=== PATIENT | female | born 1960 | race Caucasian/White ===

== ENCOUNTER 2019-03-15 17:44 | Inpatient (IN) | payer OTHER ==
--- OUTSIDE RECORDS SUMMARY | 2019-03-15 17:46 | XMS REPORT ---
:1960 [facility] Address [address] [place] [address] [address]. [address]. [address] [place] [address] Care Team Providers Name Role Phone Unavailable Unavailable Unavailable Payers Payer Name Policy Type Policy Number Effective Date Expiration Date Problems This patient has no known problems. Allergies, Adverse Reactions, Alerts Allergy Allergy Status Severity Reaction(s) Onset Inactive Treating Comments Name Type Date Date Clinician No Known DA Active U 2018-09 Drug -19 Allergies 00:00:0 0 Medications This patient has no known medications.
--- NOTE | 2019-03-15 18:45 | RAD REPORT ---
EXAM DESCRIPTION: Anastasia Single View03/15/2019 6:24 pm CLINICAL HISTORY: Chest pain COMPARISON: January 2019 FINDINGS: The lungs appear clear of acute infiltrate. The heart is mildly enlarged IMPRESSION: No acute abnormalities displayed
[2019-03-15 19:23] LABS: Urine Blood 1+ (NEG); Urine Glucose NEGATIVE (NEG); Urine Protein NEGATIVE (NEG); Urine Specific Gravity 1.005 (1.005-1.030); Urine pH 7.5 (5.0-7.0)
[2019-03-15 19:25] LABS: Absolute Monocytes 0.5 K/uL (0.1-1.3); Absolute Neutrophil 4.3 K/uL (1.8-8.0); Basophils % 0.8 % (0-1.3); Eosinophils % 2.7 % (0-4.4); Hematocrit 41.3 % (36.0-45.0); Lymphocytes % 28.9 % (15.3-44.8); MPV 8.1 fL (7.6-11.3); Monocytes % 6.9 % (3.3-12.3); RBC Red Blood Cell Count 4.56 M/uL (3.86-4.86)
[2019-03-15 19:29] LABS: Protime INR 0.93
[2019-03-15 19:47] LABS: Potassium 3.4 mmol/L (3.5-5.1); Troponin (Emerg Dept Use Only) 0.16 ng/mL (0.0-0.045)
--- NOTE | 2019-03-15 21:14 | EDPHYS ---
Physician Documentation [facility] Name: Kay Rousseau Age: 58 yrs Sex: Female : 1960 Arrival Date: 03/15/2019 Time: 17:47 Bed 18 Private MD: Cliff Orantes ED Physician Carl Soria HPI: 03/15 21:15 This 58 yrs old Female presents to ER via Ambulatory with complaints of High gs Blood Pressure, Nausea, Dizziness. 21:16 This 58 yrs old Female presents to ER via Ambulatory with complaints of High gs Blood Pressure, Nausea, Dizziness. 21:15 The patient has elevated blood pressure and discovered this at home. gs 21:16 The patient or guardian reports chest pain that is located primarily in the anterior gs chest wall. Onset: today. The pain radiates to the left arm, neck. Associated signs and symptoms: Pertinent positives: dizziness, shortness of breath. The chest pain is described as a heaviness. Duration: The patient or guardian reports a single episode, that is now resolved. Severity of pain: At its worst the pain was moderate severe in the emergency department the pain has resolved. The patient has experienced similar episodes in the past, a few times. Historical: - Allergies: 17:56 No Known Allergies; aj - Home Meds: 17:56 losartan Oral [Active]; Prozac 40 mg Oral cap 2 caps once daily [Active]; Synthroid 112 aj mcg Oral tab 1 tab once daily [Active]; - PMHx: 17:56 Depression; High Cholesterol; Hypertension; Hypothyroidism; aj - PSHx: 17:56 Thyroidectomy; aj - Immunization history:: Adult Immunizations up to date. - Social history:: Smoking status: Patient/guardian denies using tobacco. - Ebola Screening: : Patient negative for fever greater than or equal to 101.5 degrees Fahrenheit, and additional compatible Ebola Virus Disease symptoms Patient denies exposure to infectious person Patient denies travel to an Ebola-affected area in the 21 days before illness onset No symptoms or risks identified at this time. ROS: 21:16 All other systems are negative. gs Exam: 21:16 Head/Face: Normocephalic, atraumatic. Eyes: Pupils equal round and reactive to light, gs extra-ocular motions intact. Lids and lashes normal. Conjunctiva and sclera are non-icteric and not injected. Cornea within normal limits. Periorbital areas with no swelling, redness, or edema. ENT: Nares patent. No nasal discharge, no septal abnormalities noted. Tympanic membranes are normal and external auditory canals are clear. Oropharynx with no redness, swelling, or masses, exudates, or evidence of obstruction, uvula midline. Mucous membranes moist. Neck: Trachea midline, no thyromegaly or masses palpated, and no cervical lymphadenopathy. Supple, full range of motion without nuchal rigidity, or vertebral point tenderness. No Meningismus. Chest/axilla: Normal chest wall appearance and motion. Nontender with no deformity. No lesions are appreciated. Cardiovascular: Regular rate and rhythm with a normal S1 and S2. No gallops, murmurs, or rubs. Normal PMI, no JVD. No pulse deficits. Respiratory: Lungs have equal breath sounds bilaterally, clear to auscultation and percussion. No rales, rhonchi or wheezes noted. No increased work of breathing, no retractions or nasal flaring. Abdomen/GI: Soft, non-tender, with normal bowel sounds. No distension or tympany. No guarding or rebound. No evidence of tenderness throughout. Back: No spinal tenderness. No costovertebral tenderness. Full range of motion. Skin: Warm, dry with normal turgor. Normal color with no rashes, no lesions, and no evidence of cellulitis. MS/ Extremity: Pulses equal, no cyanosis. Neurovascular intact. Full, normal range of motion. Neuro: Awake and alert, GCS 15, oriented to person, place, time, and situation. Cranial nerves II-XII grossly intact. Motor strength 5/5 in all extremities. Sensory grossly intact. Cerebellar exam normal. Normal gait. 21:16 Constitutional: The patient appears alert, awake. 21:16 ECG was reviewed by the Attending Physician. Vital Signs: 17:56 BP 177 / 91; Pulse 72; Resp 19; Temp 98.1; Pulse Ox 98% on R/A; Weight 87.09 kg; Height aj 5 ft. 5 in. (165.10 cm); 18:46 BP 143 / 89; Pulse 61; Resp 16; Pulse Ox 96% ; bp 19:15 BP 121 / 74; Pulse 59; Resp 17; Temp 98; Pulse Ox 99% ; Pain 0/10; rr5 20:00 BP 125 / 75; Pulse 60; Resp 17; Temp 98; Pulse Ox 99% ; Pain 0/10; rr5 21:00 BP 126 / 75; Pulse 58; Resp 16; Pulse Ox 98% on R/A; rr5 22:10 BP 131 / 69; Pulse 59; Resp 17; Pulse Ox 99% on R/A; rr5 23:30 BP 120 / 69; Pulse 60; Resp 18; Temp 98.1; Pulse Ox 99% ; Pain 0/10; rr5 17:56 Body Mass Index 31.95 (87.09 kg, 165.10 cm) aj MDM: 18:24 Patient medically screened. 21:16 Differential diagnosis: abnormal EKG, acute myocardial infarction, coronary artery gs disease pneumonia. HEART Score: History: Highly Suspicious (2), ECG: Non specific repolarization disturbance / LBTB / PM (1), Age: > 45 and < 65 years (1), Risk Factors: 1 or 2 risk factors (1), Troponin: > or = 3 x Normal Limit (2). The patient was given aspirin in the Emergency Department. Data reviewed: vital signs, nurses notes. Counseling: I had a detailed discussion with the patient and/or guardian regarding: the historical points, exam findings, and any diagnostic results supporting the discharge/admit diagnosis, the need for further work-up and treatment in the hospital. 03/15 18:10 Order name: Basic Metabolic Panel 03/15 18:10 Order name: CBC with Diff 03/15 18:10 Order name: NT PRO-BNP; Complete Time: 21:04 03/15 18:10 Order name: PT-INR; Complete Time: 19:36 03/15 18:10 Order name: Troponin (emerg Dept Use Only); Complete Time: 21:04 03/15 18:11 Order name: Basic Metabolic Panel; Complete Time: 21:04 EDGA 03/15 18:10 Order name: XRAY Chest (1 view); Complete Time: 19:36 03/15 18:10 Order name: EKG; Complete Time: 18:12 03/15 18:11 Order name: CBC with Automated Diff; Complete Time: 19:36 EDGA 03/15 19:01 Order name: Urine Dipstick--Ancillary (enter results); Complete Time: 19:36 03/15 22:18 Order name: CONS Physician Consult [facility] 03/15 22:18 Order name: Echo with Doppler [facility] 03/15 22:18 Order name: Troponin I [facility] 03/15 18:10 Order name: Cardiac monitoring; Complete Time: 18:31 03/15 18:10 Order name: EKG - Nurse/Tech; Complete Time: 18:50 03/15 18:10 Order name: IV Saline Lock; Complete Time: 18:44 03/15 18:10 Order name: Labs collected and sent; Complete Time: 18:44 03/15 18:10 Order name: O2 Per Protocol; Complete Time: 18:31 03/15 18:10 Order name: O2 Sat Monitoring; Complete Time: 18:31 03/15 18:51 Order name: Labs - recollect needed; Complete Time: 19:19 aa5 EC:16 Rate is 58 beats/min. Rhythm is regular. IA interval is normal. QRS interval is normal. gs No Q waves. T waves are Flattened. ST Segment is depressed in leads I, aVL. Clinical impression: Cardiac ischemia. Interpreted by me. Administered Medications: 21:37 Drug: Aspirin Chewable Tablet 324 mg Route: PO; rr5 22:31 Follow up: Response: No adverse reaction rr5 Disposition: 21:16 Critical Care:. gs Disposition: 03/15/19 21:14 Hospitalization ordered by Earnest Vee for Inpatient Admission. Preliminary diagnosis is Unstable angina. - Bed requested for Telemetry/MedSurg (Inpatient). - Status is Inpatient Admission. rr5 - Condition is Stable. - Problem is new. - Symptoms are resolved. UTI on Admission? No Critical care time excluding procedures: 21:16 Critical care time: Bedside Care: 10 minutes, Consultation: 10 minutes, Family gs Intervention: 10 minutes. Total time: 30 minutes Signatures: Dispatcher [employer] EDSadaf Turner RN RN aj Calderon, Audri, RN RN aa5 Shanda Calzada RN RN cg Starr, Gregory, MD MD Cristofer Bacon RN RN rr5 Corrections: (The following items were deleted from the chart) 22:22 21:14 Hospitalization Ordered by Earnest Vee MD for Inpatient Admission. Preliminary cg diagnosis is Unstable angina. Bed requested for Telemetry/MedSurg (Inpatient). Status is Inpatient Admission. Condition is Stable. Problem is new. Symptoms are resolved. UTI on Admission? No. 23:50 22:22 03/15/2019 21:14 Hospitalization Ordered by Earnest Vee MD for Inpatient rr5 Admission. Preliminary diagnosis is Unstable angina. Bed requested for Telemetry/MedSurg (Inpatient). Status is Inpatient Admission. Condition is Stable. Problem is new. Symptoms are resolved. UTI on Admission? No.
--- NOTE | 2019-03-15 21:14 | ER ---
Nurse's Notes [facility] Name: Kay Rousseau Age: 58 yrs Sex: Female : 1960 Arrival Date: 03/15/2019 Time: 17:47 Bed 18 Private MD: Cliff Orantes Diagnosis: Unstable angina Presentation: 03/15 17:54 Presenting complaint: Patient states: "spells of chest pain, headache and left arm aj numbness" that started 2 days ago. Reports continued numbness to left arm and general "fogginess". Reports HTN today. Transition of care: patient was not received from another setting of care. Onset of symptoms was March 13, 2019. Risk Assessment: Do you want to hurt yourself or someone else? Patient reports no desire to harm self or others. Initial Sepsis Screen: Does the patient meet any 2 criteria? No. Patient's initial sepsis screen is negative. Does the patient have a suspected source of infection? No. Patient's initial sepsis screen is negative. Care prior to arrival: None. 17:54 Method Of Arrival: Ambulatory 17:54 Acuity: JEREMY 2 aj Triage Assessment: 17:56 General: Appears in no apparent distress. comfortable, Behavior is calm, cooperative, aj appropriate for age. Pain: Denies pain. Neuro: Level of Consciousness is awake, alert, obeys commands, Oriented to person, place, time, situation, Appropriate for age Gait is steady, Speech is normal, Facial symmetry appears normal, Numbness in left arm. Respiratory: Airway is patent Respiratory effort is even, unlabored, Respiratory pattern is regular, symmetrical. GI: Reports nausea. Derm: Skin is intact, is healthy with good turgor, Skin is pink, warm \\T\\ dry. normal. Historical: - Allergies: 17:56 No Known Allergies; aj - Home Meds: 17:56 losartan Oral [Active]; Prozac 40 mg Oral cap 2 caps once daily [Active]; Synthroid 112 aj mcg Oral tab 1 tab once daily [Active]; - PMHx: 17:56 Depression; High Cholesterol; Hypertension; Hypothyroidism; aj - PSHx: 17:56 Thyroidectomy; aj - Immunization history:: Adult Immunizations up to date. - Social history:: Smoking status: Patient/guardian denies using tobacco. - Ebola Screening: : Patient negative for fever greater than or equal to 101.5 degrees Fahrenheit, and additional compatible Ebola Virus Disease symptoms Patient denies exposure to infectious person Patient denies travel to an Ebola-affected area in the 21 days before illness onset No symptoms or risks identified at this time. Screenin:00 Abuse screen: Denies threats or abuse. Denies injuries from another. Nutritional bp screening: No deficits noted. Tuberculosis screening: No symptoms or risk factors identified. Fall Risk None identified. Assessment: 18:00 General: SEE TRIAGE NOTE. bp 19:15 General: Appears in no apparent distress. comfortable, Behavior is calm, cooperative, rr5 appropriate for age. Pain: Denies pain. Neuro: Level of Consciousness is awake, alert, obeys commands, Oriented to person, place, time, situation, Appropriate for age Reports dizziness. Cardiovascular: Capillary refill < 3 seconds Patient's skin is warm and dry. 19:15 Reassessment: blood recollection done. Cardiovascular: Reports high blood pressure. rr5 Respiratory: Airway is patent Respiratory effort is even, unlabored, Respiratory pattern is regular, symmetrical. GI: Abdomen is obese, Reports nausea. : No signs and/or symptoms were reported regarding the genitourinary system. EENT: No signs and/or symptoms were reported regarding the EENT system. Derm: Skin is intact, Skin temperature is warm. Musculoskeletal: Capillary refill < 3 seconds, Range of motion: intact in all extremities. 20:30 Reassessment: Patient appears in no apparent distress at this time. No changes from rr5 previously documented assessment. Patient is alert, oriented x 3, equal unlabored respirations, skin warm/dry/pink. awaiting for result. 21:25 Reassessment: Patient appears in no apparent distress at this time. Patient is alert, rr5 oriented x 3, equal unlabored respirations, skin warm/dry/pink. Patient denies pain at this time. Patient states feeling better. Patient states symptoms have improved. 22:10 Reassessment: Patient appears in no apparent distress at this time. Patient is alert, rr5 oriented x 3, equal unlabored respirations, skin warm/dry/pink. review done for admission patient agreed for the plan of care. 23:30 Reassessment: Patient appears in no apparent distress at this time. Patient is alert, rr5 oriented x 3, equal unlabored respirations, skin warm/dry/pink. 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 no complaints made. vitally stable. for transfer in 4th floor. Vital Signs: 17:56 BP 177 / 91; Pulse 72; Resp 19; Temp 98.1; Pulse Ox 98% on R/A; Weight 87.09 kg; Height aj 5 ft. 5 in. (165.10 cm); 18:46 BP 143 / 89; Pulse 61; Resp 16; Pulse Ox 96% ; bp 19:15 BP 121 / 74; Pulse 59; Resp 17; Temp 98; Pulse Ox 99% ; Pain 0/10; rr5 20:00 BP 125 / 75; Pulse 60; Resp 17; Temp 98; Pulse Ox 99% ; Pain 0/10; rr5 21:00 BP 126 / 75; Pulse 58; Resp 16; Pulse Ox 98% on R/A; rr5 22:10 BP 131 / 69; Pulse 59; Resp 17; Pulse Ox 99% on R/A; rr5 23:30 BP 120 / 69; Pulse 60; Resp 18; Temp 98.1; Pulse Ox 99% ; Pain 0/10; rr5 17:56 Body Mass Index 31.95 (87.09 kg, 165.10 cm) aj ED Course: 17:47 Patient arrived in ED. mr 17:48 Cliff Orantes MD is Private Physician. mr 17:55 Triage completed. aj 17:56 Arm band placed on left wrist. Patient placed in an exam room. aj 18:00 Patient has correct armband on for positive identification. Bed in low position. Call bp light in reach. Side rails up X2. Adult w/ patient. 18:06 Carl Soria MD is Attending Physician. gs 18:25 XRAY Chest (1 view) In Process Unspecified. EDMS 18:30 Cliff Vance, AYSE is Primary Nurse. bp 18:32 CBC with Diff Sent. bp 18:32 Basic Metabolic Panel Sent. bp 18:46 Inserted saline lock: 22 gauge in right antecubital area, using aseptic technique. bp Blood collected. 19:01 EKG done, by ED staff, reviewed by Carl Soria MD. mh5 19:15 IV discontinued, Pressure dressing applied, infiltrated. rr5 19:35 Missed attempt(s): 22 gauge Bleeding controlled, band aid applied, catheter tip intact. rr5 20:10 Primary Nurse role handed off by Cliff Vance, RN ed1 20:22 Cristofer Bacon, RN is Primary Nurse. rr5 21:13 Earnest Vee MD is Hospitalizing Provider. 21:30 Inserted saline lock: 22 gauge in left hand, using aseptic technique. rr5 23:30 No provider procedures requiring assistance completed. Patient admitted, IV remains in rr5 place. intact. Administered Medications: 21:37 Drug: Aspirin Chewable Tablet 324 mg Route: PO; rr5 22:31 Follow up: Response: No adverse reaction rr5 Outcome: 21:14 Decision to Hospitalize by Provider. gs 23:30 Admitted to Tele accompanied by tech, room 413, with chart, Report called to loretta rr5 23:30 Condition: stable 23:30 Instructed on the need for admit. 23:50 Patient left the ED. rr5 Signatures: Dispatcher [employer] EDMS Sadaf Herrera, RN Nya Singh Erika, RN RN ed1 Debra Sears [facility] Carl Soria MD MD Cliff Vance, RN RN Cristofer Bacon, RN RN rr5
[2019-03-15] MEDS ORDERED: ASPIRIN 81 MG CHEWABLE TABLET ONE (21:40)
[2019-03-15] MEDS ORDERED: ONDANSETRON 4 MG/2 ML VIAL IV PRN (22:09)
[2019-03-15] MEDS ORDERED: ALPRAZOLAM 0.25 MG TABLET PO PRN (22:09)
[2019-03-15] MEDS ORDERED: MORPHINE 4 MG/ML SYR IV PRN (22:09)
[2019-03-15] MEDS ORDERED: ACETAMINOPHEN 500 MG TAB PO PRN (22:09)
[2019-03-15] MEDS ORDERED: HEPARIN/D5W 25,000 UNIT/500 ML BAG IV SCH (23:00)
[2019-03-16 01:08] LABS: Troponin I 0.18 ng/mL (0.0-0.045)
[2019-03-16] MEDS ORDERED: TEMAZEPAM 15 MG CAP PO ONE (01:47)
[2019-03-16 07:01] LABS: Albumin 3.7 g/dL (3.4-5.0); Bilirubin Total 0.5 mg/dL (0.2-1.0); Magnesium 2.4 mg/dL (1.8-2.4); Potassium 3.4 mmol/L (3.5-5.1); Protein, Total 7.4 g/dL (6.4-8.2); Troponin I 0.13 ng/mL (0.0-0.045)
[2019-03-16] MEDS ORDERED: NITROGLYCERIN 0.4 MG/TAB SL PRN (07:09)
[2019-03-16] MEDS ORDERED: POTASSIUM CL SA 10 MEQ TAB PO ONE (07:34)
[2019-03-16] MEDS ORDERED: ROSUVASTATIN 10 MG TAB PO ONE (08:02)
[2019-03-16] MEDS ORDERED: ENOXAPARIN 40 MG/0.4 ML SQ SCH (09:00)
[2019-03-16] MEDS ORDERED: POTASSIUM CL 40 MEQ in NA CHLORIDE 0.9% 500 ML IV SCH (09:00)
[2019-03-16] MEDS: ASPIRIN 325 MG TAB PO SCH (09:13)
[2019-03-16] MEDS: METOPROLOL TAR 50 MG TAB PO SCH ×2 (09:13→20:39)
--- NOTE | 2019-03-16 09:13 | P.HP ---
Certification for Inpatient Patient admitted to: Inpatient With expected LOS: >2 Midnights Patient will require the following post-hospital care: None Practitioner: I am a practitioner with admitting privileges, knowledge of patient current condition, hospital course, and medical plan of care. Services: Services provided to patient in accordance with Admission requirements found in Title 42 Section 412.3 of the Code of Federal Regulations Patient History Date of Service: 03/15/19 Reason for admission: chest pain History of Present Illness: Patient is a 58-year-old female who has been in pretty good health up until yesterday when she started experiencing some chest discomfort. She has had similar chest pain a few days prior but gradually alleviated. She was a little short of breath and lightheaded. She became diaphoretic and nauseated. She decided to come into the ER for further evaluation. In the ER, her initial troponin was slightly elevated. However, her chest pain has pretty much been alleviated . Patient was given aspirin, Plavix, statin, beta-kirsten therapy , and started on anticoagulation. Will consult Cardiology and keep patient NPO after midnight. Recheck troponins and will also order echocardiogram. Allergies No Known Allergies Allergy (Unverified 08/14/17 00:28) Home Medications: Fluoxetine HCl [Prozac] 80 mg PO DAILY 03/16/19 Gabapentin 300 mg PO BID 03/16/19 Levothyroxine Sodium 125 mcg PO DAILY 03/16/19 Losartan/Hydrochlorothiazide [Losartan-Hctz 100-25 mg Tab] 1 tab PO DAILY Metoprolol Succinate 50 mg PO DAILY 03/16/19 Rosuvastatin Calcium [Crestor] 10 mg PO BEDTIME 03/16/19 lamoTRIgine [Lamictal] 200 mg PO DAILY 03/16/19 - Past Medical/Surgical History Has patient received pneumonia vaccine in the past: No -: depression -: htn -: hyperlipidemia -: chronic pain -: right knee surgery (august 2019) - Family History Mother Medical History: Other (see notes) Notes: liver tumors at 39 Father Medical History: Heart disease (40yo) - Social History Smoking Status: Never smoker Caffeine use: Yes Place of Residence: Home Review of Systems 10-point ROS is otherwise unremarkable Physical Examination - Vital Signs Temperature: 98.0 F Blood Pressure: 114/65 Pulse: 67 Respirations: 20 Pulse Ox (%): 99 - Physical Exam General: Alert, In no apparent distress, Oriented x3 HEENT: Atraumatic, PERRLA, Mucous membr. moist/pink, EOMI, Sclerae nonicteric Neck: Supple, 2+ carotid pulse no bruit, No LAD, Without JVD or thyroid abnormality Respiratory: Clear to auscultation bilaterally, Normal air movement Cardiovascular: Regular rate/rhythm, Normal S1 S2, No murmurs Gastrointestinal: Normal bowel sounds, Soft and benign, Non-distended, No tenderness, No rebound, No guarding Musculoskeletal: No clubbing, No swelling, No tenderness Integumentary: No rashes Neurological: Normal gait, Normal speech, Normal strength at 5/5 x4 extr, Normal tone, Sensation intact, Cranial nerves 3-12 intact, Normal affect Lymphatics: No axilla or inguinal lymphadenopathy - Studies Laboratory Data (last 24 hrs) 03/15/19 19:15: PT 11.0, INR 0.93 03/15/19 19:15: WBC 7.0, Hgb 13.9, Hct 41.3, Plt Count 324 03/15/19 19:15: Sodium 137, Potassium 3.4 L, BUN 13, Creatinine 0.75, Glucose 90 Assessment & Plan - Problems (Diagnosis) (1) NSTEMI (non-ST elevated myocardial infarction) Current Visit: Yes Status: Acute (2) HTN (hypertension) Current Visit: Yes Status: Acute (3) Dyslipidemia Current Visit: Yes Status: Acute - Plan 1. Serial troponins and EKG 2. Cardiology consultation 3. Echocardiogram and further intervention pending cardiology evaluation; will make patient NPO 4. Anti-platelet therapy, anti coagulation, beta-kirsten, statin, and O2 as needed 5. IV morphine for pain 6. Nitro p.r.n. 7. GI/DVT prophylaxis Discharge Plan: Home Plan to discharge in: Greater than 2 days - Advance Directives Does patient have a Living Will: No Does patient have a Durable POA for Healthcare: No - Code Status/Comfort Care Code Status Assessed: Yes Code Status: Full Code Critical Care: No Time Spent Managing PTS Care (In Minutes): 45
[2019-03-16] MEDS: CLOPIDOGREL 75 MG TABLET PO SCH (09:20)
[2019-03-16 09:33] LABS: Absolute Lymphocytes (CBC) 1.5 K/uL (0.7-4.9); Absolute Monocytes 0.4 K/uL (0.1-1.3); Basophils % 1.1 % (0-1.3); Eosinophils % 2.5 % (0-4.4); Hematocrit 41.6 % (36.0-45.0); Lymphocytes % 24.3 % (15.3-44.8); MPV 8.1 fL (7.6-11.3); Monocytes % 6.7 % (3.3-12.3); RBC Red Blood Cell Count 4.57 M/uL (3.86-4.86)
[2019-03-16 09:36] LABS: Protime INR 0.98
--- NOTE | 2019-03-16 10:40 | EKG ---
Test Date: 2019-03-16 Test Time: 07:18:05 Rail Track Layer: NISHANT MEASUREMENT RESULTS: Intervals: Rate: 59 MI: 154 QRSD: 84 QT: 468 QTc: 463 [place]: P: 30 MI: 154 QRS: 4 T: 152 INTERPRETIVE STATEMENTS: Sinus bradycardia ST & T wave abnormality, consider lateral ischemia Abnormal ECG Compared to ECG 03/15/2019 18:50:12 ST (T wave) deviation now present Possible ischemia now present Left ventricular hypertrophy no longer present Early repolarization no longer present Electronically Signed On 03-16-19 10:39:03 CDT by Pepe Russ
--- NOTE | 2019-03-16 10:42 | EKG ---
Test Date: 2019-03-15 Test Time: 18:50:12 Humidifier Operator: VIVIENNE MEASUREMENT RESULTS: Intervals: Rate: 58 VA: 136 QRSD: 80 QT: 412 QTc: 404 [place]: P: 11 VA: 136 QRS: -6 T: 128 INTERPRETIVE STATEMENTS: Sinus bradycardia Left ventricular hypertrophy with repolarization abnormality Abnormal ECG Compared to ECG 08/13/2017 20:47:53 Left ventricular hypertrophy now present Early repolarization now present Sinus rhythm no longer present ST (T wave) deviation no longer present Electronically Signed On 03-16-19 10:42:16 CDT by Pepe Russ
--- NOTE | 2019-03-16 11:58 | CON ---
Additional Attending Physician: Dr. Vee. Reason For Cardiology Consult: Non ST elevation myocardial infarction. History Of Present Illness: Mrs. Rousseau has been having chest pain for about 3 days before coming t o the hospital, intermittent but go away once when she took clonidine. She has not used any nitrogly cerin. She is treated for hypertension and dyslipidemia, but has not been taking her Crestor, medici ne prescribed but not taking. She does not use tobacco. Does not have any previous history of vascu lar disease. No myocardial infarction or stroke. She came to the hospital with chest pain. It was mostly gone by the time she got here. Overnight, she has had EKGs that are not significant for ST el evation or Q-waves. There was minor T-wave abnormality and troponins are elevated at 0.18 to 0.20. The patient is not having chest pain, it is no new. Physical Examination: General: She is 5 feet 3 inches, 200 pounds. Body mass index 35.5. Alert, oriented, pleasant, not in distress. Lungs: Clear. Cardiac: Normal carotids. No bruit. Abdomen: Soft. Extremities: Palpable distal pulses. Mild edema. Home Medications: Crestor 10, losartan 100, hydrochlorothiazide 25, Lamictal 200, levothyroxine 125, gabapentin, fluoxetine 80 mg a day and metoprolol succinate 50 mg daily. Impression: If the patient has had a non-ST elevation myocardial infarction, we should do a cardiac cath and possible stent. We will try to do that later today. The patient seems to understand the procedure, potential benefits, indications, risks, and agrees to proceed. ISIDRA Voice ID: [id number] Report ID: [id number]
--- NOTE | 2019-03-16 12:05 | ECHO ---
HEIGHT: 5 ft 3 in WEIGHT: 199 lb 9.6 oz DATE OF STUDY: 03/16/[address]: Earnest Vee MD 2-DIMENSIONAL: YES M.MODE: YES DOPPLER: YES COLOR FLOW: YES TDS: NO PORTABLE: NO DEFINITY: NO BUBBLE STUDY: NO DIAGNOSIS: ANTERIOR MYOCARDIAL INFARCTION CARDIAC HISTORY: CATHERIZATION: NO SURGERY: NO PROSTHETIC VALVE: NO PACEMAKER: NO MEASUREMENTS (cm) DIASTOLIC (NORMALS) SYSTOLIC (NORMALS) IVSd 1.2 (0.6-1.2) LA Diam 3.3 (1.9-4.0) LVEF 79% LVIDd 4.8 (3.5-5.7) LVIDs 2.5 (2.0-3.5) %FS 47% LVPWd 1.2 (0.6-1.2) Ao Diam 2.7 (2.0-3.7) 2 DIMENSIONAL ASSESSMENT: RIGHT ATRIUM: NORMAL LEFT ATRIUM: NORMAL RIGHT VENTRICLE: NORMAL LEFT VENTRICLE: NORMAL TRICUSPID VALVE: NORMAL MITRAL VALVE: NORMAL PULMONIC VALVE: NORMAL AORTIC VALVE: NORMAL PERICARDIAL EFFUSION: NONE AORTIC ROOT: NORMAL LEFT VENTRICULAR WALL MOTION: NORMAL. DOPPLER/COLOR FLOW: MILD TRICUSPID REGURGITATION. NORMAL RIGHT VENTRICULAR SYSTOLIC PRESSURE. COMMENTS: NORMAL 2D ECHO. MILD TRICUSPID REGURGITATION. TECHNOLOGIST: JUAN BRIGGS
[2019-03-16] MEDS ORDERED: NA CHLORIDE 0.9% 1,000 ML ONE (12:55)
[2019-03-16] MEDS ORDERED: HEPA 1000U/500MLS 2,000 UNIT/1,000 ML BAG IV ONE (13:20)
[2019-03-16] MEDS ORDERED: MIDAZOLAM HCL 2 MG/2 ML INJ ONE ×2 (13:20→13:49)
[2019-03-16] MEDS ORDERED: FENTANYL CITR 100 MCG/2 ML ONE (13:21)
[2019-03-16] MEDS ORDERED: NA CHLORIDE 0.9% 50 ML ONE (13:21)
[2019-03-16] MEDS ORDERED: ATROPINE SULF 1 MG/10 ML SYR IV ONE (13:21)
[2019-03-16] MEDS ORDERED: LIDOCAINE 1% MPF 30 ML VIAL ONE (13:21)
[2019-03-16] MEDS ORDERED: NITROGLYCERIN 100 MCG/ML SYR (for cath lab use only) IV ONE (13:22)
[2019-03-16] MEDS ORDERED: NITROGLYCERIN/D5W 25 MG/250 ML BTL IV ONE (13:22)
[2019-03-16] MEDS ORDERED: HEPA 1000U/500MLS 1,000 UNIT/500 ML BAG IV ONE (14:14)
--- NOTE | 2019-03-16 14:39 | P.PN ---
Subjective Date of Service: 03/16/19 Chief Complaint: chest pain Subjective: No C/O voiced, Improving Patient seen and examined at bedside. at bedside. Chart reviewed and case discussed with nursing staff. Patient reports resolved chest pain at this time. No concerns or complaints at this time. Review of Systems 10-point ROS is otherwise unremarkable Physical Examination - Vital Signs Temperature: 97.9 F Blood Pressure: 125/59 Pulse: 54 Respirations: 20 Pulse Ox (%): 96 - Physical Exam General: Alert, In no apparent distress HEENT: Atraumatic, PERRLA, EOMI Neck: Supple, JVD not distended Respiratory: Clear to auscultation bilaterally, Normal air movement Cardiovascular: Regular rate/rhythm, Normal S1 S2 Gastrointestinal: Normal bowel sounds, No tenderness Musculoskeletal: No tenderness Integumentary: No rashes Neurological: Normal speech, Normal tone, Normal affect Lymphatics: No axilla or inguinal lymphadenopathy - Studies Laboratory Data (last 24 hrs) 03/15/19 19:15: PT 11.0, INR 0.93 03/15/19 19:15: WBC 7.0, Hgb 13.9, Hct 41.3, Plt Count 324 03/15/19 19:15: Sodium 137, Potassium 3.4 L, BUN 13, Creatinine 0.75, Glucose 90 Assessment And Plan - Current Problems (Diagnosis) (1) NSTEMI (non-ST elevated myocardial infarction) Current Visit: Yes Status: Acute Plan: Cardiology consulted, recommendations appreciated. ECHO pending Patient pending a cardiac cath at this time. Continue BB, statin and asa. (2) HTN (hypertension) Current Visit: Yes Status: Acute Plan: Continue home medications, well controlled at this time. Qualifiers: Hypertension type: essential hypertension Qualified Code(s): I10 - Essential (primary) hypertension (3) Dyslipidemia Current Visit: Yes Status: Acute Plan: Continue statin - Plan DVT Prophylaxis: ASA, plavix GI prophylaxis: None Diet: NPO for procedure Disposition: Pending cardiac cath
[2019-03-16] MEDS ORDERED: PRASUGREL (EFFIENT) 10 MG TAB ONE (14:41)
[2019-03-16] MEDS ORDERED: FENTANYL CITR 100 MCG/2 ML IV PRN (14:43)
[2019-03-16] MEDS ORDERED: ATORVASTATIN 20 MG TAB PO SCH (21:00)
--- NOTE | 2019-03-17 01:20 | OP ---
Surgeon: Pepe Russ MD Plumbing Drafter: curriculum assistant principal: Farzana Morel. Procedures: Left heart catheterization, coronary angiography, percutaneous coronary intervention wit h a stent of LAD lesion that was both proximal and mid LAD. Procedure Findings: Primary success, the stenosis went from 99% to 0%. There was mild plaquing in t he RCA. The RCA origin was high anterior and was a challenge to cannulate for angiography and LV gra m was not done. Procedure In Detail: The patient had evidence of a non-ST elevation [place]. 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 Right femoral approach was used. The tissues around the right femoral artery were anesthet ized with 1% lidocaine. Palpation was used to locate the artery. The artery was entered using an 18 -gauge needle, cannulated with a J-wire. A 4-Moroccan sheath was used. We used a JL4 to angiogram the left. Right coronary could not be angiogramed with a 3DRC, Amplatz AL3 or multipurpose. It was suc cessfully angiogramed ostium cannulated using an Amplatz AL1. Once the angiograms were done and the decision was made to do a stent, we gave Angiomax, documented activated clotting time over 300 second s. We changed out for a 6-Moroccan sheath. We placed a 6-Moroccan XBLAD 3.5 catheter with side holes as a guide catheter. It sat in the left main ostium, gave good support. We were able to cross the les ion with a [place] wire. We pre-dilated with a 2.5 x 12 Emerge balloon. Following this, we placed a 3.0 x 16 Synergy stent across the lesion. The angiographic result was excellent, DAVID grade 3 flow. One dose of nitroglycerin was given to lower blood pressure and after final orthogonal pictures were taken with the wire out of the patient not across the lesion, we withdrew the guide catheter, took a sheath shot through the 6-Moroccan sheath and we elected to close the arteriotomy using Angio-Seal dev ice once the activated clotting time is around 250 seconds. Complications From The Procedure: None. Estimated Blood Loss: 20 cc. ANNA/RYAN Voice ID: [id number] Report ID: [id number]
[2019-03-17 04:43] LABS: Hematocrit 40.7 % (36.0-45.0); MPV 8.6 fL (7.6-11.3); RBC Red Blood Cell Count 4.46 M/uL (3.86-4.86)
[2019-03-17 04:47] LABS: Phosphorus 4.2 mg/dL (2.5-4.9); Potassium 4.1 mmol/L (3.5-5.1)
[2019-03-17] MEDS: METOPROLOL TAR 50 MG TAB PO SCH (09:14)
[2019-03-17] MEDS: ASPIRIN 325 MG TAB PO SCH (09:14)
[2019-03-17] MEDS: CLOPIDOGREL 75 MG TABLET PO SCH (09:14)
--- NOTE | 2019-03-17 09:24 | P.DS ---
Admission Date: 03/15/19 Discharge Date: 03/17/19 Primary Care Provider: Dr. Orantes Disposition: ROUTINE DISCHARGE Discharge Condition: GOOD Reason for Admission: chest pain Consultations: Cardiology Procedures: 03/16/2019: Left heart catheterization, coronary angiography, percutaneous coronary intervention with a stent of LAD lesion that was both proximal and mid LAD. Procedure Findings: Primary success, the stenosis went from 99% to 0%. There was mild plaquing in the RCA. The RCA origin was high anterior and was a challenge to cannulate for angiography and LV gram was not done. - Problems (1) NSTEMI (non-ST elevated myocardial infarction) Current Visit: Yes Status: Acute (2) HTN (hypertension) Current Visit: Yes Status: Acute Qualifiers: Hypertension type: essential hypertension Qualified Code(s): I10 - Essential (primary) hypertension (3) Dyslipidemia Current Visit: Yes Status: Acute Brief History of Present Illness: Patient is a 58-year-old female who has been in pretty good health up until yesterday when she started experiencing some chest discomfort. She has had similar chest pain a few days prior but gradually alleviated. She was a little short of breath and lightheaded. She became diaphoretic and nauseated. She decided to come into the ER for further evaluation. In the ER, her initial troponin was slightly elevated. However, her chest pain has pretty much been alleviated . Patient was given aspirin, Plavix, statin, beta-kirsten therapy , and started on anticoagulation. Will consult Cardiology and keep patient NPO after midnight. Recheck troponins and will also order echocardiogram. Hospital Course: Patient was admitted for chest pain, found to have non ST elevation myocardial infarction. Chest pain guidelines were started. Cardiology was consulted. Patient underwent a cardiac catheterization on 03/16/2019. A stent was placed in the LAD. Patient tolerated the procedure well. The catheterization site remained clear dry and intact. Prior to discharge, patient was alert oriented x3, chest pain had completely resolved, cath site was without any abnormalities. She was hemodynamically stable. She was counseled and educated on lifestyle modifications including diet, exercise and weight loss. She was also counseled on importance of medication compliance. Patient's diagnoses and treatment plan were discussed with her, all questions were answered and patient verbalized understanding. She was discharged home in a safe and stable manner. She was instructed to follow up with cardiology in 2 weeks and her primary care physician in 2-3 days. She was discharged on a beta-kirsten, statin, aspirin and Plavix. Vital Signs/Physical Exam: Temp Pulse Resp BP Pulse Ox 98.1 F 62 18 159/74 H 97 03/17/19 07:42 03/17/19 09:14 03/17/19 07:42 03/17/19 09:14 03/17/19 07:42 General: Alert, In no apparent distress, Oriented x3 HEENT: Atraumatic, PERRLA, EOMI Neck: Supple, JVD not distended Respiratory: Clear to auscultation bilaterally, Normal air movement Cardiovascular: Regular rate/rhythm, Normal S1 S2 Gastrointestinal: Normal bowel sounds, No tenderness Musculoskeletal: No tenderness Integumentary: No rashes, Other (Cath site clear dry intact) Neurological: Normal speech, Normal tone, Normal affect Lymphatics: No axilla or inguinal lymphadenopathy Laboratory Data at Discharge: WBC 7.7 K/uL (4.3-10.9) D 03/17/19 03:37 Hgb 14.0 g/dL (12.0-15.0) 03/17/19 03:37 Hct 40.7 % (36.0-45.0) 03/17/19 03:37 Plt Count 320 K/uL (152-406) 03/17/19 03:37 PT 11.6 SECONDS (9.5-12.5) 03/16/19 09:17 INR 0.98 03/16/19 09:17 APTT 39.0 SECONDS (24.3-36.9) H 03/16/19 09:17 Sodium 139 mmol/L (136-145) 03/17/19 03:37 Potassium 4.1 mmol/L (3.5-5.1) 03/17/19 03:37 BUN 13 mg/dL (7-18) 03/17/19 03:37 Creatinine 0.75 mg/dL (0.55-1.3) 03/17/19 03:37 Glucose 100 mg/dL (74-106) 03/17/19 03:37 Phosphorus Cancelled 03/17/19 05:00 Magnesium 2.4 mg/dL (1.8-2.4) 03/16/19 06:31 Total Bilirubin 0.5 mg/dL (0.2-1.0) 03/16/19 06:31 AST 16 U/L (15-37) 03/16/19 06:31 ALT 26 U/L (12-78) 03/16/19 06:31 Alkaline Phosphatase 58 U/L (45-117) 03/16/19 06:31 Troponin I 0.13 ng/mL (0.0-0.045) H 03/16/19 06:31 Triglycerides Cancelled 03/16/19 05:00 Cholesterol Cancelled 03/16/19 05:00 HDL Cholesterol Cancelled 03/16/19 05:00 Cholesterol/HDL Ratio Cancelled 03/16/19 05:00 Home Medications: Fluoxetine HCl [Prozac] 80 mg PO DAILY 03/16/19 Gabapentin 300 mg PO BID 03/16/19 Levothyroxine Sodium 125 mcg PO DAILY 03/16/19 Losartan/Hydrochlorothiazide [Losartan-Hctz 100-25 mg Tab] 1 tab PO DAILY lamoTRIgine [Lamictal] 200 mg PO DAILY 03/16/19 Aspirin Chewable [Aspirin Chewable*] 81 mg PO DAILY #100 tab.chew 03/17/19 Atorvastatin Calcium [Lipitor] 80 mg PO DAILY #30 tablet 03/17/19 Clopidogrel Bisulfate [Plavix] 75 mg PO DAILY #30 tablet 03/17/19 Metoprolol Succinate [Toprol Xl*] 50 mg PO BID #60 tab 03/17/19 New Medications: Aspirin Chewable [Aspirin Chewable*] 81 mg PO DAILY #100 tab.chew Atorvastatin Calcium [Lipitor] 80 mg PO DAILY #30 tablet Clopidogrel Bisulfate [Plavix] 75 mg PO DAILY #30 tablet Metoprolol Succinate [Toprol Xl*] 50 mg PO BID #60 tab Patient Discharge Instructions: Please follow up with the primary care physician in 2-3 days. Please follow up with cardiology in 2 weeks. Information has been provided to you. Please make sure to take medications as you have been prescribed. Please return to the emergency room for worsening symptoms Diet: AHA Activity: Ad carter Followup: Ramin Morejon MD [ACTIVE - CAN ADMIT] - 1-2 Weeks (Call crayon grader to schedule an appointment ) Cliff Orantes MD [Primary Care Provider] - 2-3 Days (Call to schedule an appointment ) Time spent managing pt's care (in minutes): 55
--- NOTE | 2019-03-17 11:35 | PN ---
Date of Progress Note: 03/17/2019 The patient was seen by Dr. Russ yesterday, had a heart catheterization and ended up with 2 LAD dana nt proximal and mid. The angioplasty stent were successful. There were no complication during the p rocedure. Overnight her right groin continues to be intact with no hematoma. She remained in sinus rhythm. She had no chest pain. She will be going home today on aspirin, Plavix, metoprolol, Lipitor and losartan, which she was taking at home. I would like to see her in the office in about 2 weeks. KIM/RYAN Voice ID: [id number] Report ID: [id number]
== END 2019-03-17 10:49 | disposition home or self-care (01) | DRG 247 ==
LOC: ER 17:44 → ERHOLD 22:49 → 4TH 23:39
PROVIDERS: ADMIT Hospitalist; ATTEND Family Medicine
PROC: 027034Z Dilation of Coronary Artery, One Artery with Drug-eluting Intraluminal Device, Percutaneous Approach (ICD-10-PCS; principal; 2019-03-16)
PROC: 4A023N7 Measurement of Cardiac Sampling and Pressure, Left Heart, Percutaneous Approach (ICD-10-PCS; 2019-03-16)
PROC: B2111ZZ Fluoroscopy of Multiple Coronary Arteries using Low Osmolar Contrast (ICD-10-PCS; 2019-03-16)
DX: I21.4 Non-ST elevation (NSTEMI) myocardial infarction (principal); I25.10 Atherosclerotic heart disease of native coronary artery without angina pectoris; I10 Essential (primary) hypertension; E78.5 Hyperlipidemia, unspecified; F32.9 Major depressive disorder, single episode, unspecified; E89.0 Postprocedural hypothyroidism; G89.29 Other chronic pain
CPT/HCPCS: 36415; 71045; 80048; 80053; 80061; 81003; 83735; 83880; 84100; 84132; 84484; 85025; 85027; 85610; 85730; 93005; 93306; 93458; 96365; 96367; 99285; C1725; C1760; C1893; C9600; J0583; J2250; J3010; J7030

== ENCOUNTER 2019-09-10 18:51 | Emergency (ER) | payer OTHER ==
[2019-09-10 20:00] LABS: Basophils % 0.8 % (0-1.3); Hematocrit 38.7 % (36.0-45.0); Lymphocytes % 30.9 % (15.3-44.8); MPV 7.8 fL (7.6-11.3); Protime INR 0.94
[2019-09-10 20:12] LABS: ALT/SGPT 24 U/L (12-78); AST/SGOT 18 U/L (15-37); Albumin 3.7 g/dL (3.4-5.0); Alkaline Phosphatase 75 U/L (45-117); BUN Blood Urea Nitrogen 16 mg/dL (7-18); Bicarbonate 28 mmol/L (21-32); Bilirubin Direct < 0.1 mg/dL (0-0.2); Bilirubin Total 0.3 mg/dL (0.2-1.0); Glucose Level 85 mg/dL (74-106); NT PRO-BNP 726 pg/mL (<125); Potassium 3.2 mmol/L (3.5-5.1); Protein, Total 7.3 g/dL (6.4-8.2); Sodium Level 136 mmol/L (136-145); Troponin (Emerg Dept Use Only) < 0.02 ng/mL (0.0-0.045)
--- NOTE | 2019-09-10 20:15 | RAD REPORT ---
EXAM DESCRIPTION: Anastasia Single View09/10/2019 7:52 pm CLINICAL HISTORY: Hypertension COMPARISON: March 2019 FINDINGS: The lungs appear clear of acute infiltrate. The heart is moderately enlarged IMPRESSION: No acute abnormalities displayed
[2019-09-10] MEDS ORDERED: POTASSIUM 25 MEQ EFFERV TAB ONE (20:51)
--- NOTE | 2019-09-10 20:57 | RAD REPORT ---
EXAM DESCRIPTION: CT - Head Brain Wo Cont - 09/10/2019 8:35 pm CLINICAL HISTORY: Headache COMPARISON: 2018 TECHNIQUE: Computed axial tomography of the head was obtained. IV contrast was not requested. All CT scans are performed using dose optimization technique as appropriate and may include automated exposure control or mA/KV adjustment according to patient size. FINDINGS: An intracranial bleed is not seen . The ventricles are normal in caliber. No extra-axial fluid collection is noted. Fluid within the sinuses/ mastoids is not seen. IMPRESSION: No acute intracranial abnormality is seen. If patient's symptoms persist MRI of the bra in would be recommended.
[2019-09-10] MEDS ORDERED: AMLODIPINE 5 MG TAB ONE (20:59)
[2019-09-10 21:15] LABS: Urine Bacteria <20 /HPF (<20); Urine Culture Reflex Order NOT NEEDED; Urine RBC NONE SEEN /HPF (NONE SEEN)
[2019-09-10 21:16] LABS: Urine Blood 1+ (NEG); Urine Glucose NEGATIVE (NEG); Urine Protein NEGATIVE (NEG); Urine Specific Gravity 1.015 (1.005-1.030)
--- NOTE | 2019-09-10 21:42 | EDPHYS ---
Physician Documentation [facility] Name: Kay Rousseau Age: 59 yrs Sex: Female : 1960 Arrival Date: 09/10/2019 Time: 18:54 Bed 20 Private MD: ED Physician Anup Morris HPI: 09/10 19:35 This 59 yrs old Female presents to ER via Ambulatory with complaints of High cp Blood Pressure. 19:35 The patient has elevated blood pressure and discovered this at home, with a home device.cp 19:35 Onset: The symptoms/episode began/occurred today. Associated signs and symptoms: cp Pertinent positives: headache, intermittent numbness of left arm, Pertinent negatives: chest pain, lightheadedness, vomiting, weakness. 19:35 Severity of symptoms: in the emergency department the blood pressure is unchanged, cp despite home interventions. Historical: - Allergies: 19:02 No Known Allergies; la1 - Home Meds: 19:02 losartan Oral [Active]; Prozac 40 mg Oral cap 2 caps once daily [Active]; Synthroid 112 la1 mcg Oral tab 1 tab once daily [Active]; Metoprolol Tartrate Oral [Active]; - PMHx: 19:02 Depression; High Cholesterol; Hypertension; Hypothyroidism; la1 - Immunization history:: Adult Immunizations up to date. - Social history:: Smoking status: Patient/guardian denies using tobacco. - Ebola Screening: : No symptoms or risks identified at this time. ROS: 19:40 Constitutional: Negative for body aches, chills, fever, poor PO intake. cp 19:40 Eyes: Negative for injury, pain, redness, and discharge. cp 19:40 ENT: Negative for drainage from ear(s), ear pain, sore throat, difficulty swallowing, difficulty handling secretions. 19:40 Cardiovascular: Negative for chest pain, edema, palpitations. 19:40 Respiratory: Negative for cough, shortness of breath, wheezing. 19:40 Abdomen/GI: Negative for abdominal pain, vomiting, diarrhea, constipation. 19:40 : Negative for urinary symptoms. 19:40 Skin: Negative for rash. 19:40 Neuro: Positive for headache, tingling, of the left arm, Negative for altered mental status, syncope, weakness. 19:40 All other systems are negative. Exam: 19:15 ECG was reviewed by the Attending Physician. Vital Signs: 19:03 BP 202 / 89; Pulse 89; Resp 16; Temp 97.5; Pulse Ox 100% on R/A; Weight 86.18 kg; la1 Height 5 ft. 3 in. (160.02 cm); 19:11 BP 189 / 83; Pulse 49; Resp 16 S; Pulse Ox 98% on R/A; Pain 0/10; cc3 19:15 BP 185 / 82; Pulse 49; Resp 16 S; Pulse Ox 98% on R/A; Pain 0/10; cc3 19:30 BP 173 / 72; Pulse 49; Resp 16 S; Pulse Ox 97% on R/A; Pain 0/10; cc3 20:41 BP 182 / 84; Pulse 47; Resp 17 S; Pulse Ox 98% on R/A; cc3 21:39 BP 172 / 87; Pulse 52; Resp 16 S; Pulse Ox 98% on R/A; Pain 0/10; cc3 19:03 Body Mass Index 33.66 (86.18 kg, 160.02 cm) la1 MDM: 19:27 Patient medically screened. 09/10 19:31 Order name: Basic Metabolic Panel; Complete Time: 20:34 09/10 20:34 Interpretation: Normal except: K 3.2; GFR 64. 09/10 19:31 Order name: CBC with Diff; Complete Time: 20:34 09/10 19:31 Order name: LFT's; Complete Time: 20:34 09/10 21:02 Interpretation: Normal except: GLOB 3.6; A/G 1.0. 09/10 19:31 Order name: Magnesium; Complete Time: 20:34 09/10 19:31 Order name: NT PRO-BNP; Complete Time: 20:34 09/10 19:31 Order name: PT-INR; Complete Time: 20:34 09/10 19:31 Order name: Troponin (emerg Dept Use Only); Complete Time: 20:34 09/10 19:31 Order name: EKG; Complete Time: 19:32 09/10 19:31 Order name: CT Head Brain wo Cont; Complete Time: 21:02 09/10 21:02 Interpretation: Report reviewed. 09/10 19:31 Order name: Urine Microscopic Only; Complete Time: 21:34 cp 09/10 19:31 Order name: XRAY Chest (1 view); Complete Time: 20:34 cp 09/10 20:49 Order name: Urine Dipstick--Ancillary (enter results); Complete Time: 21:34 ar5 09/10 19:31 Order name: Cardiac monitoring; Complete Time: 19:31 cp 09/10 19:31 Order name: EKG - Nurse/Tech; Complete Time: 19:31 cp 09/10 19:31 Order name: IV Saline Lock; Complete Time: 19:47 cp 09/10 19:31 Order name: Labs collected and sent; Complete Time: 19:47 cp 09/10 19:31 Order name: O2 Per Protocol; Complete Time: 19:32 cp 09/10 19:31 Order name: O2 Sat Monitoring; Complete Time: 19:32 cp 09/10 19:31 Order name: Urine Dipstick-Ancillary (obtain specimen); Complete Time: 21:15 cp EC:15 Rate is 49 beats/min. Rhythm is regular. FL interval is normal. QRS interval is normal. cp QT interval is normal. Interpreted by me. Reviewed by me. Administered Medications: 20:50 Drug: Potassium Effervescent Tablet 50 mEq Route: PO; 3 21:00 Follow up: Response: No adverse reaction [facility] 21:03 Drug: amLODIPine 10 mg Route: PO; 21:39 Follow up: Response: No adverse reaction; Blood pressure is lowered cc3 Disposition: 09/10/19 21:42 Discharged to Home. Impression: Hypertensive heart disease. - Condition is Stable. - Discharge Instructions: Hypertension, How to Take Your Blood Pressure, [id number], Managing Your Hypertension. - Prescriptions for Norvasc 5 mg Oral Tablet - take 1 tablet by ORAL route once daily; 30 tablet. - Medication Reconciliation Form, Thank You Letter, Antibiotic Education, Prescription Opioid Use form. - Follow up: Private Physician; When: 1 - 2 days; Reason: Recheck today's complaints. - Problem is new. - Symptoms have improved. Addendum: 09/12/2019 07:59 Co-signature as Attending Physician, Anup Morris MD I agree with the assessment and c zhang plan of care. Signatures: Dispatcher [employer] Anup Pretty MD MD cha Attema, Lee RN RN la1 Anup Simental PA PA cp Habalo, Moris Still, Alison cc3 Corrections: (The following items were deleted from the chart) 09/10 21:56 21:42 09/10/2019 21:42 Discharged to Home. Impression: Hypertensive heart disease. cc3 Condition is Stable. Forms are Medication Reconciliation Form, Thank You Letter, Antibiotic Education, Prescription Opioid Use. Follow up: Private Physician; When: 1 - 2 days; Reason: Recheck today's complaints. Problem is new. Symptoms have improved. cp
--- NOTE | 2019-09-10 21:42 | ER ---
Nurse's Notes [facility] Name: Kay Rousseau Age: 59 yrs Sex: Female : 1960 Arrival Date: 09/10/2019 Time: 18:54 Bed 20 Private MD: Diagnosis: Hypertensive heart disease Presentation: 09/10 19:01 Presenting complaint: Patient states: HAYWARD and elevated BP at home. I feel like my left la1 arm is a little numb anytime my head hurts and I feel some nausea. BP at home was around 180s. Transition of care: patient was not received from another setting of care. Onset of symptoms was September 10, 2019. Risk Assessment: Do you want to hurt yourself or someone else? Patient reports no desire to harm self or others. Initial Sepsis Screen: Does the patient meet any 2 criteria? No. Patient's initial sepsis screen is negative. Does the patient have a suspected source of infection? No. Patient's initial sepsis screen is negative. Care prior to arrival: None. 19:01 Method Of Arrival: Ambulatory la1 19:03 Acuity: JEREMY 2 la1 Historical: - Allergies: 19:02 No Known Allergies; la1 - Home Meds: 19:02 losartan Oral [Active]; Prozac 40 mg Oral cap 2 caps once daily [Active]; Synthroid 112 la1 mcg Oral tab 1 tab once daily [Active]; Metoprolol Tartrate Oral [Active]; - PMHx: 19:02 Depression; High Cholesterol; Hypertension; Hypothyroidism; la1 - Immunization history:: Adult Immunizations up to date. - Social history:: Smoking status: Patient/guardian denies using tobacco. - Ebola Screening: : No symptoms or risks identified at this time. Screenin:05 Abuse screen: Denies threats or abuse. Denies injuries from another. Nutritional cc3 screening: No deficits noted. Tuberculosis screening: No symptoms or risk factors identified. Fall Risk Ambulatory Aid- None/Bed Rest/Nurse Assist (0 pts). Gait- Normal/Bed Rest/Wheelchair (0 pts) Mental Status- Oriented to own ability (0 pts). Assessment: 19:05 General: Appears in no apparent distress. uncomfortable, Behavior is calm, cooperative, cc3 appropriate for age. Pain: Denies pain. Neuro: Level of Consciousness is awake, alert, obeys commands, Oriented to person, place, time, situation, Appropriate for age. Cardiovascular: Denies chest pain, diaphoresis, fatigue, palpitations, syncope, vomiting, Heart tones S1 S2 present Capillary refill < 3 seconds in bilateral fingers Patient's skin is warm and dry. Rhythm is sinus bradycardia Chest pain is denied Parent/caregiver reports patient has had shortness of breath, since a week. Respiratory: Airway is patent Respiratory effort is even, unlabored, Respiratory pattern is regular, symmetrical, Breath sounds are clear bilaterally. GI: Abdomen is round non-distended, Bowel sounds present X 4 quads. Abd is soft and non tender X 4 quads. : No signs and/or symptoms were reported regarding the genitourinary system. EENT: No signs and/or symptoms were reported regarding the EENT system. Derm: Skin is intact, is healthy with good turgor, Skin is pink, warm \T\ dry. normal. Musculoskeletal: Circulation, motion, and sensation intact. Range of motion: intact in all extremities. 20:31 Reassessment: Patient appears in no apparent distress at this time. Patient and/or cc3 family updated on plan of care and expected duration. Pain level reassessed. Patient is alert, oriented x 3, equal unlabored respirations, skin warm/dry/pink. Patient taken by agronomy technician to their department by wheelchair. 20:40 Reassessment: Patient came back from CT scan department, awaiting result. cc3 21:50 Reassessment: Patient appears in no apparent distress at this time. Patient and/or cc3 family updated on plan of care and expected duration. Pain level reassessed. Patient is alert, oriented x 3, equal unlabored respirations, skin warm/dry/pink. PA Page discharged the patient home with prescription given. IV cannula removed and patient left ER vitally stable and ambulatory with her daughter. No valuables left in the patient's room. Patient denies pain at this time. Patient states feeling better. Patient states symptoms have improved. Vital Signs: 19:03 BP 202 / 89; Pulse 89; Resp 16; Temp 97.5; Pulse Ox 100% on R/A; Weight 86.18 kg; la1 Height 5 ft. 3 in. (160.02 cm); 19:11 BP 189 / 83; Pulse 49; Resp 16 S; Pulse Ox 98% on R/A; Pain 0/10; cc3 19:15 BP 185 / 82; Pulse 49; Resp 16 S; Pulse Ox 98% on R/A; Pain 0/10; cc3 19:30 BP 173 / 72; Pulse 49; Resp 16 S; Pulse Ox 97% on R/A; Pain 0/10; cc3 20:41 BP 182 / 84; Pulse 47; Resp 17 S; Pulse Ox 98% on R/A; cc3 21:39 BP 172 / 87; Pulse 52; Resp 16 S; Pulse Ox 98% on R/A; Pain 0/10; cc3 19:03 Body Mass Index 33.66 (86.18 kg, 160.02 cm) la1 ED Course: 18:54 Patient arrived in ED. jg7 19:03 Triage completed. la1 19:03 Arm band placed on right wrist. la1 19:04 Alison Still is Primary Nurse. cc3 19:05 Patient has correct armband on for positive identification. Placed in gown. Bed in low cc3 position. Call light in reach. Side rails up X2. playground monitor on. Pulse ox on. NIBP on. 19:18 Anup Simental PA is PHCP. cp 19:18 Octaviano Montiel MD is Attending Physician. cp 19:45 Inserted saline lock: 22 gauge in left wrist, using aseptic technique. Blood collected. cc3 19:51 Anup Morris MD is Attending Physician. cp 19:53 XRAY Chest (1 view) In Process Unspecified. EDMS 20:35 CT Head Brain wo Cont In Process Unspecified. EDMS 20:36 CT completed. Patient tolerated procedure well. Patient moved back from CT. bq 21:50 No provider procedures requiring assistance completed. IV discontinued, intact, cc3 bleeding controlled, No redness/swelling at site. Pressure dressing applied. Administered Medications: 20:50 Drug: Potassium Effervescent Tablet 50 mEq Route: PO; cc3 21:00 Follow up: Response: No adverse reaction cc3 21:03 Drug: amLODIPine 10 mg Route: PO; 21:39 Follow up: Response: No adverse reaction; Blood pressure is lowered cc3 Outcome: 21:42 Discharge ordered by . cp 21:50 Discharged to home ambulatory, with family. cc3 21:50 Condition: stable 21:50 Discharge instructions given to patient, family, Instructed on discharge instructions, follow up and referral plans. medication usage, Demonstrated understanding of instructions, follow-up care, medications, Prescriptions given X 1. 21:56 Patient left the ED. cc3 Signatures: Dispatcher [employer] EDMS Leona Mcknight Lee RN RN la1 Anup Simental PA PA cp Habalo, Winsy wh Cordel, Charlene cc3 Kimi Elizalde
[2019-09-10 22:12] VITALS: TEMP 97.5
[2019-09-10 22:17] VITALS: O2SAT 98
[2019-09-10 22:19] VITALS: BP 172/87
--- NOTE | 2019-09-11 06:24 | EKG ---
Test Date: 2019-09-10 Test Time: 19:09:16 Provider Education Specialist: ROMMEL MEASUREMENT RESULTS: Intervals: Rate: 49 VT: 162 QRSD: 84 QT: 466 QTc: 420 [place]: P: 37 VT: 162 QRS: 0 T: 11 INTERPRETIVE STATEMENTS: Sinus bradycardia Minimal voltage criteria for LVH, may be normal variant Nonspecific ST abnormality Abnormal ECG Compared to ECG 03/16/2019 07:18:05 Left ventricular hypertrophy now present Possible ischemia no longer present ST (T wave) deviation still present Electronically Signed On 09-11-19 06:23:45 ATMOSPHERIC SCIENTIST by Pepe Russ
== END 2019-09-10 21:56 | disposition home or self-care (01) ==
LOC: ER 18:51
DX: I11.9 Hypertensive heart disease without heart failure (principal); E03.9 Hypothyroidism, unspecified; I10 Essential (primary) hypertension; E78.00 Pure hypercholesterolemia, unspecified; F32.9 Major depressive disorder, single episode, unspecified
CPT/HCPCS: 36415; 70450; 71045; 80048; 80076; 81003; 81015; 83735; 83880; 84484; 85025; 85610; 93005; 99285

== ENCOUNTER 2019-10-30 11:46 | Emergency (ER) | payer OTHER ==
--- OUTSIDE RECORDS SUMMARY | 2019-10-30 11:47 | XMS REPORT ---
:1960 [facility] Address [address] [place] [address] [address]. [address] [place] [address] Care Team Providers Name Role Phone Unavailable [...]
--- NOTE | 2019-10-30 14:58 | RAD REPORT ---
EXAM DESCRIPTION: US - Extrem Venous W Compress Jack - 10/30/2019 2:33 pm CLINICAL HISTORY: Pain;Swelling Bilateral leg edema and swelling. COMPARISON: No comparisons TECHNIQUE: Real-time sonographic interrogation of the left and right lower extremity deep venous sys tems was performed. FINDINGS: Normal compressibility, flow augmentation, phasic flow and spontaneous flow is identified in both the left and right lower extremity deep venous systems. IMPRESSION: No sonographic evidence of left or right lower extremity deep venous thrombosis.
--- NOTE | 2019-10-30 15:12 | ER ---
Nurse's Notes [facility] Name: Kay Rousseau Age: 59 yrs Sex: Female : 1960 Arrival Date: 10/30/2019 Time: 11:47 Bed 8 Private MD: Diagnosis: Edema, unspecified-Dependent edema Presentation: 10/30 12:14 Presenting complaint: Patient states: Swelling on both legs started 2 days. Both calves ca1 hurting. It was swollen that it was hurting. I put them up last night and it's not as bad anymore but I am scared because I had a hear attack on September this year. Pt also c/o headache. Transition of care: patient was not received from another setting of care. Onset of symptoms was October 28, 2019. Risk Assessment: Do you want to hurt yourself or someone else? Patient reports no desire to harm self or others. Initial Sepsis Screen: Does the patient meet any 2 criteria? No. Patient's initial sepsis screen is negative. Does the patient have a suspected source of infection? No. Patient's initial sepsis screen is negative. Care prior to arrival: None. 12:14 Method Of Arrival: Ambulatory ca1 12:14 Acuity: JEREMY 3 ca1 Historical: - Allergies: 12:23 No Known Allergies; ca1 - Home Meds: 12:23 clopidogrel oral oral [Active]; Metoprolol Tartrate Oral [Active]; losartan Oral ca1 [Active]; amlodipine oral [Active]; 13:15 Prozac 40 mg Oral cap 2 caps once daily [Active]; Synthroid 112 mcg Oral tab 1 tab once hb daily [Active]; - PMHx: 12:23 Depression; High Cholesterol; Hypertension; Hypothyroidism; Myocardial infarction; ca1 - PSHx: 12:23 Stents; Knee surgery; ca1 - Immunization history:: Adult Immunizations up to date, Pneumococcal vaccine is not up to date, Flu vaccine is up to date. - Social history:: Smoking status: Patient/guardian denies using tobacco. - Ebola Screening: : Patient negative for fever greater than or equal to 101.5 degrees Fahrenheit, and additional compatible Ebola Virus Disease symptoms Patient denies exposure to infectious person Patient denies travel to an Ebola-affected area in the 21 days before illness onset No symptoms or risks identified at this time. Screenin:13 Abuse screen: Denies threats or abuse. Denies injuries from another. Nutritional hb screening: No deficits noted. Tuberculosis screening: No symptoms or risk factors identified. Fall Risk None identified. Assessment: 12:45 General: Appears in no apparent distress. Behavior is calm, cooperative. Pain: Pain hb currently is 8 out of 10 on a pain scale. Neuro: Level of Consciousness is awake, alert, obeys commands, Oriented to person, place, time, situation. Cardiovascular: Capillary refill < 3 seconds Patient's skin is warm and dry. Respiratory: Airway is patent Respiratory effort is even, unlabored, Respiratory pattern is regular, symmetrical. GI: No signs and/or symptoms were reported involving the gastrointestinal system. : No signs and/or symptoms were reported regarding the genitourinary system. EENT: No signs and/or symptoms were reported regarding the EENT system. Derm: Skin is pink, warm \T\ dry. Musculoskeletal: Reports bilateral lower leg pain and swelling. 13:45 Reassessment: Patient appears in no apparent distress at this time. Patient and/or hb family updated on plan of care and expected duration. Pain level reassessed. Patient is alert, oriented x 3, equal unlabored respirations, skin warm/dry/pink. 14:56 Reassessment: Patient appears in no apparent distress at this time. Patient and/or hb family updated on plan of care and expected duration. Pain level reassessed. Patient is alert, oriented x 3, equal unlabored respirations, skin warm/dry/pink. Vital Signs: 12:23 BP 135 / 74; Pulse 56; Resp 17 S; Temp 98.2(TE); Pulse Ox 96% on R/A; Weight 90.72 kg ca1 (R); Height 5 ft. 3 in. (160.02 cm) (R); Pain 8/10; 12:23 Body Mass Index 35.43 (90.72 kg, 160.02 cm) ca1 ED Course: 11:47 Patient arrived in ED. rg4 12:19 Triage completed. ca1 12:23 Arm band placed on right wrist. ca1 12:39 Alexandre Sotelo NP is PHCP. pm1 12:39 Nick Donato MD is Attending Physician. pm1 13:12 Krystin Sharma RN is Primary Nurse. hb 13:13 Patient has correct armband on for positive identification. Call light in reach. hb 14:33 Ultrasound completed. Patient tolerated well. sg3 14:34 Extrem Venous W Compression Jack US In Process Unspecified. EDMS 15:24 No provider procedures requiring assistance completed. Patient did not have IV access hb during this emergency room visit. Administered Medications: No medications were administered Outcome: 15:11 Discharge ordered by MD. pm1 15:24 Discharged to home ambulatory. hb 15:24 Condition: stable 15:24 Discharge instructions given to patient, Instructed on discharge instructions, follow up and referral plans. Demonstrated understanding of instructions, follow-up care. 15:24 Patient left the ED. hb Signatures: Dispatcher [employer] EDMS Alexandre Sotelo, [employer] pm1 Krystin Sharma, RN RN Irene Calzada 4 Jennifer Drake sg3 Farzana Valdez RN RN ca1
--- NOTE | 2019-10-30 15:13 | EDPHYS ---
Physician Documentation [facility] Name: Kay Rousseau Age: 59 yrs Sex: Female : 1960 Arrival Date: 10/30/2019 Time: 11:47 Bed 8 Private MD: ED Physician Nick Donato HPI: 10/30 15:03 This 59 yrs old Female presents to ER via Ambulatory with complaints of Feet pm1 Swelling, Leg Swelling. 15:03 The patient presents with pain, swelling. The complaints affect the right lower leg and pm1 left lower leg. Context: resulted from patient believes that it is a result of prolonged standing, walking, and shopping for the past 2 days. Onset: The symptoms/episode began/occurred 2 day(s) ago. Modifying factors: The symptoms are alleviated by elevating leg. Associated signs and symptoms: Pertinent negatives chest pain, shortness of breath. Treatment prior to arrival includes: elevation of the extremity. Severity of symptoms: in the emergency department the symptoms have improved, markedly. The patient has not experienced similar symptoms in the past. The patient has not recently seen a physician. Historical: - Allergies: 12:23 No Known Allergies; ca1 - Home Meds: 12:23 clopidogrel oral oral [Active]; Metoprolol Tartrate Oral [Active]; losartan Oral ca1 [Active]; amlodipine oral [Active]; 13:15 Prozac 40 mg Oral cap 2 caps once daily [Active]; Synthroid 112 mcg Oral tab 1 tab once hb daily [Active]; - PMHx: 12:23 Depression; High Cholesterol; Hypertension; Hypothyroidism; Myocardial infarction; ca1 - PSHx: 12:23 Stents; Knee surgery; ca1 - Immunization history:: Adult Immunizations up to date, Pneumococcal vaccine is not up to date, Flu vaccine is up to date. - Social history:: Smoking status: Patient/guardian denies using tobacco. - Ebola Screening: : Patient negative for fever greater than or equal to 101.5 degrees Fahrenheit, and additional compatible Ebola Virus Disease symptoms Patient denies exposure to infectious person Patient denies travel to an Ebola-affected area in the 21 days before illness onset No symptoms or risks identified at this time. ROS: 15:03 Constitutional: Negative for fever, chills, and weight loss, Eyes: Negative for injury, pm1 pain, redness, and discharge, ENT: Negative for injury, pain, and discharge, Neck: Negative for injury, pain, and swelling. 15:03 Respiratory: Negative for shortness of breath, cough, wheezing, and pleuritic chest pain, Abdomen/GI: Negative for abdominal pain, nausea, vomiting, diarrhea, and constipation, Back: Negative for injury and pain, MS/Extremity: Negative for injury and deformity, Skin: Negative for injury, rash, and discoloration. 15:03 Cardiovascular: Positive for edema to bilateral lower exttremities, Negative for chest pain, orthopnea, palpitations. 15:03 Neuro: Positive for headache, Negative for dizziness, numbness, tingling, weakness. Exam: 15:03 Constitutional: This is a well developed, well nourished patient who is awake, alert, pm1 and in no acute distress. Head/Face: Normocephalic, atraumatic. Eyes: Pupils equal round and reactive to light, extra-ocular motions intact. Lids and lashes normal. Conjunctiva and sclera are non-icteric and not injected. Cornea within normal limits. Periorbital areas with no swelling, redness, or edema. ENT: Nares patent. No nasal discharge, no septal abnormalities noted. Tympanic membranes are normal and external auditory canals are clear. Oropharynx with no redness, swelling, or masses, exudates, or evidence of obstruction, uvula midline. Mucous membranes moist. Neck: Trachea midline, no thyromegaly or masses palpated, and no cervical lymphadenopathy. Supple, full range of motion without nuchal rigidity, or vertebral point tenderness. No Meningismus. Chest/axilla: Normal chest wall appearance and motion. Nontender with no deformity. No lesions are appreciated. Cardiovascular: Regular rate and rhythm with a normal S1 and S2. No gallops, murmurs, or rubs. No pulse deficits. Respiratory: Lungs have equal breath sounds bilaterally, clear to auscultation and percussion. No rales, rhonchi or wheezes noted. No increased work of breathing, no retractions or nasal flaring. Abdomen/GI: Soft, non-tender, with normal bowel sounds. No distension or tympany. No guarding or rebound. No evidence of tenderness throughout. Back: No spinal tenderness. No costovertebral tenderness. Full range of motion. Skin: Warm, dry with normal turgor. Normal color with no rashes, no lesions, and no evidence of cellulitis. 15:03 Cardiovascular: Edema: pedal edema, that is mild, bilateral. 15:03 Neuro: Orientation: is normal, Motor: is normal, moves all fours, Sensation: is normal, no obvious gross deficits. Vital Signs: 12:23 BP 135 / 74; Pulse 56; Resp 17 S; Temp 98.2(TE); Pulse Ox 96% on R/A; Weight 90.72 kg ca1 (R); Height 5 ft. 3 in. (160.02 cm) (R); Pain 8/10; 12:23 Body Mass Index 35.43 (90.72 kg, 160.02 cm) ca1 MDM: 12:48 Patient medically screened. pm1 15:10 Data reviewed: vital signs. Data interpreted: Pulse oximetry: on room air is 96 %. pm1 Interpretation: normal. Counseling: I had a detailed discussion with the patient and/or guardian regarding: the historical points, exam findings, and any diagnostic results supporting the discharge/admit diagnosis, radiology results, the need for outpatient follow up, to return to the emergency department if symptoms worsen or persist or if there are any questions or concerns that arise at home. 10/30 13:00 Order name: Extrem Venous W Compression Jack US; Complete Time: 15:03 pm1 Administered Medications: No medications were administered Disposition: 16:04 Co-signature as Attending Physician, Nick Donato MD I agree with the assessment and kdr plan of care. Disposition: 10/30/19 15:11 Discharged to Home. Impression: Edema, unspecified - Dependent edema. - Condition is Stable. - Discharge Instructions: Peripheral Edema. - Medication Reconciliation Form, Thank You Letter, Antibiotic Education, Prescription Opioid Use form. - Follow up: Emergency Department; When: As needed; Reason: Worsening of condition. Follow up: Private Physician; When: 2 - 3 days; Reason: Recheck today's complaints, Continuance of care, Re-evaluation by your physician. - Problem is new. - Symptoms have improved. Signatures: Dispatcher [employer] EDMS Nick Donato MD MD kdr Marinas, Patrick, [employer] [employer] pm1 Krystin Sharma RN RN Farzana Valdez RN RN ca1 Corrections: (The following items were deleted from the chart) 15:24 15:11 10/30/2019 15:11 Discharged to Home. Impression: Edema, unspecified - Dependent hb edema. Condition is Stable. Forms are Medication Reconciliation Form, Thank You Letter, Antibiotic Education, Prescription Opioid Use. Follow up: Emergency Department; When: As needed; Reason: Worsening of condition. Follow up: Private Physician; When: 2 - 3 days; Reason: Recheck today's complaints, Continuance of care, Re-evaluation by your physician. Problem is new. Symptoms have improved. pm1
[2019-10-30 15:30] VITALS: BP 135/74; TEMP 98.2; O2SAT 96
== END 2019-10-30 15:24 | disposition home or self-care (01) ==
LOC: ER 11:46
DX: R60.9 Edema, unspecified (principal); I10 Essential (primary) hypertension; E03.9 Hypothyroidism, unspecified; E78.00 Pure hypercholesterolemia, unspecified; F32.9 Major depressive disorder, single episode, unspecified; I25.2 Old myocardial infarction
CPT/HCPCS: 93970; 99283

== ENCOUNTER 2020-08-25 15:02 | Emergency (ER) | payer OTHER ==
--- OUTSIDE RECORDS SUMMARY | 2020-08-25 15:04 | XMS REPORT | Summary of Care ---
:1960 Author Organization [facility] - [facility] Address [address] [place] [address] Care Team Providers Name Role Phone Cliff Orantes Primary Care Provider Reason for Visit Reason Comments Follow-up pain in possible hip, reques ting inj. (Routine) Status Reason Specialty Diagnoses / Procedures Referred By Brian perezerred To Contact Contact Closed PA-PHYSICIAN Diagnoses pain in possible hip, requesting inj. Juan Mendoza Baker, Brett SOFTWOOD FALLER / Procedures CONSULT/REFERRAL ORTHOPAEDIC SURGERY [place] METHYLPREDNISOLONE 80 MG INJ [place] ARTHROCENTESIS ASPIR&/INJ MAJOR JT/BURSA W/O US FOLLOW-UP VISIT PAC S, PAC Orthopedic [address] Cristian [facility] [address] [place], [place] Phone: [phone] Phone: Encounter Details Date Type Department Care Team Description 08/07/2020 Office Visit [facility] Juan Mendoza, Lumbar radic ulopathy Orthopaedic Surgery- PAC (Primary Dx) [place] [address] [facility] Cristian Kitchen [facility] [place] [phone] Allergies No Known Allergiesdocumented as of this encounter (statuses as of 08/07/2020) Medications Medication Sig Dispensed Refills Start Date End Date Status levothyroxine 137 TAKE 1 TABLET 0 07/23/2020 Active mcg tablet BY MOUTH EVERY DAY ON EMPTY STOMACH IN THE MORNING FLUoxetine 40 mg TAKE 2 0 07/04/2020 Ac tive capsule CAPSULES BY MOUTH EVERY DAY IN THE MORNING atorvastatin 80 mg Take 80 mg by 0 07/23/2020 Active tablet mouth daily. clonazePAM 0.5 mg TAKE 1 TABLET 0 07/04/2020 Active tablet BY MOUTH EVERY DAY NEEDED clopidogreL 75 mg Take 75 mg by 0 05/15/2020 Active tablet mouth daily. lamoTRIgine 200 mg Take 200 mg 0 05/24/2020 Active tablet by mouth daily. DICLOFENAC 75 mg TAKE 1 TABLET 60 tablet 1 05/01/2020 08/07/20 2 Discontinued EC BY MOUTH 0 (Patient tabletIndications: TWICE A DAY Reported) Lumbar WITH MEALS radiculopathy documented as of this encounter (statuses as of 08/07/2020) Active Problems Not on filedocumented as of this encounter (statuses as of 08/07/2020) Social History Tobacco Use Types Packs/Day Years Used Date Never Smoker Smokeless Tobacco: Never Used Sex Assigned at Date Recorded Not on file COVID-19 Exposure Response Date Recorded In the last month, have you been in contact with No / Unsure 08/07/2020 10:20 AM CDT someone who was confirmed or suspected to have Coronavirus / COVID-19? documented as of this encounter Last Filed Vital Signs Vital Sign Reading Time Taken Comments Blood Pressure 170/83 08/07/2020 10:37 AM CDT Pulse 56 08/07/2020 10:37 AM CDT Temperature - - Respiratory Rate - - Oxygen Saturation - - Inhaled Oxygen Concentration - - Weight 89.8 kg (198 lb) 08/07/2020 10:24 AM CDT Height 160 cm (5' 3") 08/07/2020 10:24 AM CDT Body Mass Index 35.07 08/07/2020 10:24 AM CDT documented in this encounter Progress Notes Juan Mendoza, PAC - 08/07/2020 11:00 AM CDT Cc: Chief Complaint Patient presents with Follow-up pain in possible hip, requesting inj. Kay Rousseau is a 60 year old female. Here for hip pain, she has had problems with back pain and hip pain in the past and is not sure whether this is from her hip or her back she came in today to assess if it is possible to get a hip injection and she would like one. She has been taking ibuprofen every 3-4 hours but did not take it todayso we could assess her. Pain is 8/10 in intensity, pain in her back radiates all the way down her left leg to her foot to the end of her toe. She was seen previously for her back and given a home exercise program she has not attended physical therapy yet Allergies Kay has No Known Allergies. Medications Outpatient Medications Prior to Visit Medication Sig Dispense Refill atorvastatin 80 mg tablet Take 80 mg by mouth daily. clonazePAM 0.5 mg tablet TAKE 1 TABLET BY MOUTH EVERY DAY NEEDED clopidogreL 75 mg tablet Take 75 mg by mouth daily. FLUoxetine 40 mg capsule TAKE 2 CAPSULES BY MOUTH EVERY DAY IN THE MORNING lamoTRIgine 200 mg tablet Take 200 mg by mouth daily. levothyroxine 137 mcg tablet TAKE 1 TABLET BY MOUTH EVERY DAY ON EMPTY STOMACH IN THE MORNING DICLOFENAC 75 mg EC tablet TAKE 1 TABLET BY MOUTH TWICE A DAY WITH MEALS 60 tablet 1 No facility-administered medications prior to visit. Histories No past medical history on file. No past surgical history on file. Social History Socioeconomic History Marital status: Spouse name: Not on file Number of children: Not on file Years of education: Not on file Highest education level: Not on file Occupational History Not on file Social Needs Financial resource strain: Not on file Food insecurity Worry: Not on file Inability: Not on file Transportation needs Medical: Not on file Non-medical: Not on file Tobacco Use Smoking status: Never Smoker Smokeless tobacco: Never Used Substance and Sexual Activity Alcohol use: Not on file Drug use: Not on file Sexual activity: Not on file Lifestyle Physical activity Days per week: Not on file Minutes per session: Not on file Stress: Not on file Relationships Social connections Talks on phone: Not on file Gets together: Not on file Attends hinduism service: Not on file Active member of club or organization: Not on file Attends meetings of clubs or organizations: Not on file Relationship status: Not on file Intimate partner violence Fear of current or ex partner: Not on file Emotionally abused: Not on file Physically abused: Not on file Forced sexual activity: Not on file Other Topics Concern Not on file Social History Narrative Not on file No family history on file. Review of Systems Constitutional: Negative. HENT: Negative. Eyes: Negative. Respiratory: Negative. Breasts: Negative. Cardiovascular: Negative. Gastrointestinal: Negative. Genitourinary: Negative. Musculoskeletal: Positive for back pain, joint swelling and myalgias. Skin: Negative. Neurological: Negative. Psychiatric/Behavioral: Negative. Endocrine: Endocrine negative Vital Signs BP (!) 164/76 | Pulse 56 | Ht 63" (160 cm) | Wt 89.8 kg (198 lb) | BMI 35.07 kg/m Physical Exam Musculoskeletal: Lumbar back: She exhibits tenderness and pain. Back: Comments: Physical Exam Constitutional: oriented to person, place, and time. appears well-developed and well-nourished. HENT: Head: Normocephalic and atraumatic. Right Ear: External ear normal. Left Ear: External ear normal. Eyes: Conjunctivae are normal. Neck: Normal range of motion. No strabismus Neck supple. Cardiovascular: Normal rate and regular rhythm. Pulmonary/Chest: Normal respiratory rate equal chest rise and fall in no apparent distress Abdominal: Abdomen nondistended nontender Neurological: alert and oriented to person, place, and time. No asymmetry Skin: Skin is warm and dry. Psychiatric: normal mood and affect. behavior is normal. Judgment and thought content normal. Nursing note and vitals reviewed. Back pain exam Location He has a left lumbosacral pain that radiates all the way down her left leg to her toes 90 straight leg raise exacerbates her left low back pain and stretches the back of her left leg Strength in the lower extremities 5 over 5 to include extensor hallucis longus foot plantarflexion foot dorsiflexion knee flexion knee extension hip abduction and hip adduction and hip flexion. Deep tendon reflexes +2 over 4 patella bilateral +2 over 4 Achilles bilateral Sensory function intact in the lower extremities Assessment/Plan 1. Lumbar radiculopathy We will send her to the hospital for plain x-rays 6 views and depending on the results of the plain x-rays she may go for MRI it has been 5 months of conservative management with a physician directed home exercise program. documented in this encounter Plan of Treatment Name Type Priority Associated Diagnoses Order S chedule XR LUMBAR SPINE FLEXION IMAGING Routine Lumbar radiculopa thy Expected: 08/07/2020, AND EXTENSION 6+ VW Expires: 08/07/2021 Health Maintenance Due Date Last Done Comments HEPATITIS C (HCV) SCREEN 1960 Depression Screening 1970 DTaP,Tdap,and Td Vaccines (1 - 1977 Tdap) PAP SMEAR 1979 Breast Cancer Screening (MAMMOGRAM) 1998 COLON CANCER SCREENING ANNUAL 2008 FIT/FOBT COLON CANCER SCREENING FIT DNA 2008 EVERY 3 YEARS COLON CANCER SCREENING 2008 SIGMOIDOSCOPY EVERY 5 YEARS COLONOSCOPY 2008 Colorectal Cancer Screening 2008 Zoster Recombinant Vaccine 2008 (SHINGRIX) (1 of 2) INFLUENZA VACCINE (#1) 2020 PNEUMOCOCCAL 0-64 YEARS COMBINED Aged Out No longer eligible based on SERIES patient's age to complete this topic documented as of this encounter Results Not on filedocumented in this encounter Visit Diagnoses Diagnosis Lumbar radiculopathy - Primary Thoracic or lumbosacral neuritis or radi culitis, unspecified documented in this encounter Insurance Payer Benefit Plan / Subscriber ID Effective Dates Phone Addre ss Type Group [facility] [id number] [facility] P[facility] t S documented as of this encounter
--- OUTSIDE RECORDS SUMMARY | 2020-08-25 15:04 | XMS REPORT | Summary of Care ---
:1960 Author Organization [facility] - [facility] Address [address] [place] [address] Care Team Providers Name Role Phone Lamberto Cliff Martinez Primary Care Provider Reason for Visit Reason Comments Notification The patient wants to schedul e an appointment. I advised her we don't treat for the back then she stated the pain goes in her leg. She doesn't remeber what they saw on her last Xrays and would like someone to call and tell her so she can know if she needs to schedule here again or go to a back specialist Encounter Details Date Type Department Care Team Description 07/26/2020 Telephone [facility] Orthopaedic Hermelindo Watson otification (The Surgery- Rl Vyas MD patient wants to [address], [address] an [address] I advised [place] [address] [address], [place] treat for the back then [phone] [address] she stated the pain goes [phone] in her leg. She doesn't [phone] remeber what th ey saw on (Fax) her last Xrays and would like someone to call and tell her so she can know if she needs to schedule here again or g o to a back specialist ) Allergies No Known Allergiesdocumented as of this encounter (statuses as of 07/27/2020) Medications Medication Sig Dispensed Refills Start Date End Date Status DICLOFENAC 75 mg EC TAKE 1 TABLET BY 60 tablet 1 05/01/2020 Active tabletIndications: MOUTH TWICE A Lumbar radiculopathy DAY WITH MEALS documented as of this encounter (statuses as of 07/27/2020) Active Problems Not on filedocumented as of this encounter (statuses as of 07/27/2020) Social History Tobacco Use Types Packs/Day Years Used Date Never Assessed Sex Assigned at Date Recorded Not on file documented as of this encounter Last Filed Vital Signs Not on filedocumented in this encounter Miscellaneous Notes Telephone Encounter - Pérez Quinn - 07/27/2020 4:44 PM CDTCalled patient forwarded to [facility]. I left a detailed descriptive voice mail for patient. To callus back with questions or concerns. Pérez Quinn 07/27/2020 4:45 PM elephone Encounter - Juan Mendoza PAC - 07/27/2020 1:00 PM CDTPain that comes from your back through your Buttocks and down her leg is from her back not from her l eg If she is strictly having pain in her leg and not in her back and the pain is located in the joint we will see her for that. elephone Encounter - Derrick Prince - 07/26/2020 9:42 AM CDTThe patient wants to schedule an appointment. I advised her we don't treat for the back then she stated the pain goes in her leg. She doesn't remeber what they saw on her last Xrays and would like someone to call and tell her so she can know if she needs to schedule here again or go to a back specialist documented in this encounter Plan of Treatment Health Maintenance Due Date Last Done Comments HEPATITIS C (HCV) SCREEN 1960 Depression Screening 1970 DTaP,Tdap,and Td Vaccines ( - 1977 Tdap) PAP SMEAR 1979 Breast [...] Results Not on filedocumented in this encounter Insurance Payer Benefit Plan / Subscriber ID Effective Dates Phone Addre ss Type Group [facility] [id number] 2018-Yadira O/ PPO/[facility] PPO t S documented as of this encounter
--- OUTSIDE RECORDS SUMMARY | 2020-08-25 15:04 | XMS REPORT | Continuity of Care Document ---
:1960 Author Organization [facility] t Address [address] [place] [address] Care Team Providers Name Role Phone Cecy Yan Attending Clinician Payers Payer Name Policy Type Policy Number Effective Date Expiration Date S ource Problems This patient has no known problems. Allergies, Adverse Reactions, Alerts Allergy Allergy Status Severity Reaction(s) Onset Inactive Treating Comm ents Source Name Type Date Date Clinician No Known DA Active U 2017-11 [facility] 11-27 [place] Allergie 00:00: d s [address] [place] [address] Medications This patient has no known medications. Procedures This patient has no known procedures. Encounters Start End Encounter Admission Attending Care Care Encounter Source Date/Time Date/Time Type Type Clinicians Facility Department ID 2020-08-07 2020-08-09 Office ROMANA Mendoza [id number] 20 10:19:18 11:06:03 Visit [facility] [id number] Surgical [id number] Specialti [phone] es [address] Results This patient has no known results.
--- OUTSIDE RECORDS SUMMARY | 2020-08-25 15:05 | XMS REPORT | Summary of Care ---
:1960 Author Organization [facility] - [facility] Address [address] [place] [address] Care Team Providers Name Role Phone Cliff Orantes Primary Care Provider Reason for Referral MRI/CAT Scan (Routine) Status Reason Specialty Diagnoses / Referred By Referred To Procedures Contact Contact Pending Review Diagnostic Diagnoses Lumbar radiculopathy Juan Mendoza Radiology Procedures MR LUMBAR SPINE WO CONTRAST S, PAC [address] [place] [address] Reason for Visit Reason Comments Follow-up pain in possible hip, reques ting inj. Auth/Cert Status Reason Specialty Diagnoses / Procedures Referred By C ontact Referred To Contact Radiology Adc X-Ray [address] [place] [address] Phone: Fax: Encounter Details Date Type Department Care Team Description 08/07/2020 Office Visit [facility] Juan Mendoza S, Lumbar radic ulopathy Orthopaedic Surgery- PAC (Primary Dx) [place] [address] [facility] [place] [address] [place] [phone] Allergies No Known Allergiesdocumented as of this encounter (statuses as of 08/09/2020) Medications Medication Sig Dispensed Refills Start Date [...] as of this encounter (statuses as of 08/09/2020) Active Problems Not on filedocumented as of this encounter (statuses as of 08/09/2020) Social History Tobacco Use Types Packs/Day Years [...] file Gets together: Not on file Attends druze service: Not on file Active member of [...] home exercise program. documented in this encounter Miscellaneous Notes Addendum Note - Kasey Quinn - 08/07/2020 11:00 AM CDT Addended by: KASEY QUINN on: 08/09/2020 11:06 AM Modules accepted: Orders documented in this encounter Plan of Treatment Name Type Priority Associated Diagnoses Order S clinton MR LUMBAR SPINE WO IMAGING Routine Lumbar radiculopathy E xpected: 08/09/2020, CONTRAST Expires: 2020 Health Maintenance Due Date Last Done Comments [...] topic documented as of this encounter Results XR LUMBAR SPINE FLEXION AND EXTENSION 6+ VW (08/07/2020 1:30 PM CDT) Specimen Narrative Performed At HISTORY: Low back pain with radiculopa thy. PACS/VR/DOSE FINDINGS: AP, 3 lateral views in flexion/extension/iam tral positions, right and left oblique views and spot views of the lumbar sp carole showed 5 lumbar vertebrae with no acute compression fracture or disloc ation. Transitional S1 segment noted. L5-S1: Moderate chronic degenerative disc disease note d with narrowing of the disc space by approximately 50%, and there is sclerosis, osteophytes along the ventral vertebral margins in t he comparison abdomen and in the disc material. Minimal retrolisthesis of L5 over S1 noted. Minimal spondylolisthesis noted at L4-L5, minimal retr olisthesis at L3-L4, appears stable in flexion and extension positions. Oblique views showed bilateral facet art hritis at lower 3 lumbar levels. Atherosclerosis is noted with calcification in the aor ta without any aortic aneurysm. CONCLUSIONS: 1. Moderate degenerative disc disease at L5-S1. 2. Lower 3 lumbar levels facet arthritis . Procedure Note [facility], Radiant Results Inft User - 2019 1:37 PM CDT HISTORY: Low back pain with radiculopathy. FINDINGS: AP, 3 lateral views in flexion /extension/neutral positions, right and left oblique views and spot views of the lumbar spines showed 5 lumbar vertebrae with no acute compression frac ture or dislocation. Transitional S1 segment noted. L5-S1: Moderate chronic degenerative dis c disease noted with narrowing of the disc space by approximately 50%, and there is sclerosis, osteophytes along the ventral vertebral margins in t he comparison abdomen and in the disc material. Minimal retrolisthesis of L5 over S1 noted. Minimal spondylolisthesis noted at L4-L5 , minimal retrolisthesis at L3-L4, appears stable in flexion and extension positions. Oblique views showed bilateral facet art hritis at lower 3 lumbar levels. Atherosclerosis is noted with calcificat ion in the aorta without any aortic aneurysm. CONCLUSIONS: 1. Moderate degenerative disc disease at L5-S1. 2. Lower 3 lumbar levels facet arthritis . Performing Organization Address City/State/Zipcode Phone Number PACS/VR/DOSE documented in this encounter Visit Diagnoses Diagnosis Lumbar radiculopathy - Primary Thoracic or lumbosacral neuritis or radi culitis, unspecified documented in this encounter Insurance Payer Benefit Plan / Subscriber ID Effective Dates Phone Addre ss Type Group [facility] [id number] [facility] P[facility] t S documented as of this encounter
--- OUTSIDE RECORDS SUMMARY | 2020-08-25 15:05 | XMS REPORT | Summary of Care ---
:1960 Author Organization [facility] Address [address] [place] [address] Care Team Providers Name Role Phone Cliff Orantes Primary Care Provider Reason for Visit Auth/Cert Status Reason Specialty Diagnoses / Procedures Referred By Lance spencer Referred To Contact Radiology Adc X-Ray [address] [place] [address] Phone: Fax: Encounter Details Date Type Department Care Team Description 08/07/2020 Hospital Encounter [facility] Wero Mendoza, PAC Arrived [facility] Radiology [facility] josé [place] [address] [place] [address] [phone] Allergies No Known Allergiesdocumented as of this encounter (statuses as of 08/08/2020) Medications Medication Sig Dispensed Refills Start Date End Date Status levothyroxine 137 mcg TAKE 1 TABLET BY 0 07/23/2020 Active tablet MOUTH EVERY DAY ON EMPTY STOMACH IN THE MORNING FLUoxetine 40 mg TAKE 2 CAPSULES 0 07/04/2020 Active capsule BY MOUTH EVERY DAY IN THE MORNING atorvastatin 80 mg Take 80 mg by 0 07/23/2020 Active tablet mouth daily. clonazePAM 0.5 mg TAKE 1 TABLET BY 0 07/04/2020 Active tablet MOUTH EVERY DAY NEEDED clopidogreL 75 mg Take 75 mg by 0 05/15/2020 Active tablet mouth daily. lamoTRIgine 200 mg Take 200 mg by 0 05/24/2020 Active tablet mouth daily. documented as of this encounter (statuses as of 08/08/2020) Active Problems Not on filedocumented as of this encounter (statuses as of 08/08/2020) Social History Tobacco Use Types Packs/Day Years [...] Signs Not on filedocumented in this encounter Plan of Treatment Health [...] this topic documented as of this encounter Procedures Procedure Name Priority Date/Time Associated Diagnosis Comme nts XR LUMBAR SPINE Routine 08/07/2020 1:30 Lumbar radiculopathy Results for this FLEXION AND PM CDT procedure are i n EXTENSION 6+ VW the results section. documented in this encounter Results XR LUMBAR SPINE FLEXION [...] this encounter Visit Diagnoses Diagnosis Lumbar radiculopathy Thoracic or lumbosacral neuritis or radi culitis, unspecified documented in this encounter Insurance Payer Benefit Plan / Subscriber ID Effective Dates Phone Addre ss Type Group [facility] [id number] [facility] P[facility] t S documented as of this encounter
--- OUTSIDE RECORDS SUMMARY | 2020-08-25 15:05 | XMS REPORT | Summary of Care ---
:1960 Author Organization [facility] - Health Address [address] [place] [address] Care Team Providers Name Role Phone Lamberto Cliff Michelle Primary Care Provider Encounter Details Date Type Department Care Team Description 08/07/2020 Orders Only [facility] Doctor Unassigned, No [address] [facility] [place] [address] [address] [place] [address] Allergies No Known Allergiesdocumented as of this [...] filedocumented in this encounter Plan of Treatment Date Type Specialty Care Team Description 08/07/2020 Appointment Radiology Juan Mendoza S, PAC [address] [place] [phone] Health Maintenance Due Date Last Done Comments [...] Name Priority Date/Time Associated Diagnosis Comme nts ASSIGNMENT OF BENEFITS Routine 08/07/2020 1:07 PM CDT documented in this encounter Results Not on filedocumented in this encounter Insurance Payer Benefit Plan / Subscriber ID Effective Dates Phone Addre ss Type Group [facility] [id number] 2018-[employer] HMO/ PPO/[facility] PPO t S documented as of this encounter
--- OUTSIDE RECORDS SUMMARY | 2020-08-25 15:05 | XMS REPORT | Summary of Care ---
:1960 Author Organization [facility] - [facility] Address [address] [place] [address] Care Team Providers Name Role Phone Cliff Orantes Primary Care Provider Reason for Visit Reason Comments Follow-up pain in possible hip, reques ting inj. (Routine) Status Reason Specialty Diagnoses / Procedures Referred By Brian perezerred To Contact Contact Closed PA-PHYSICIAN Diagnoses pain in possible hip, requesting inj. Juan Mendoza Baker, Brett RAWHIDE BONE ROLLER / Procedures CONSULT/REFERRAL ORTHOPAEDIC SURGERY [place] METHYLPREDNISOLONE 80 MG INJ [place] ARTHROCENTESIS ASPIR&/INJ MAJOR JT/BURSA W/O US FOLLOW-UP VISIT PAC S, PAC Orthopedic [address] Cristian [facility] [address] [place], [place] Phone: [phone] Phone: Encounter Details Date Type Department Care Team Description 08/07/[address] [facility] Juan Mendoza, Lumbar radic ulopathy Orthopaedic Surgery- PAC (Primary Dx) [place] [address] [facility] Cristian Kitchen [facility] [place] [phone] Allergies No Known Allergiesdocumented [...] file Gets together: Not on file Attends judaism service: Not on file Active member of [...] Effective Dates Phone Addre ss Type Group [facility] [id number] [facility] P[facility] t S documented as of this encounter
[2020-08-25] MEDS ORDERED: ONDANSETRON 4 MG/2 ML VIAL ONE ×2 (16:16→19:15)
[2020-08-25 16:26] LABS: Absolute Lymphocytes (CBC) 0.9 K/uL (0.7-4.9); Basophils % 0.2 % (0-1.3); Hematocrit 38.8 % (36.0-45.0); MPV 7.9 fL (7.6-11.3); RBC Red Blood Cell Count 4.39 M/uL (3.86-4.86)
[2020-08-25 16:29] LABS: Protime INR 1.03
[2020-08-25 16:45] LABS: ALT/SGPT 28 U/L (12-78); AST/SGOT 17 U/L (15-37); Albumin 4.3 g/dL (3.4-5.0); Alkaline Phosphatase 73 U/L (45-117); BUN Blood Urea Nitrogen 9 mg/dL (7-18); Bicarbonate 27 mmol/L (21-32); Bilirubin Direct 0.3 mg/dL (0-0.2); Bilirubin Total 1.1 mg/dL (0.2-1.0); Glucose Level 144 mg/dL (74-106); Lipase 106 U/L (73-393); Potassium 3.1 mmol/L (3.5-5.1); Protein, Total 8.2 g/dL (6.4-8.2); Sodium Level 122 mmol/L (136-145)
[2020-08-25] MEDS ORDERED: NA CHLORIDE 0.9% 1,000 ML ONE (17:17)
[2020-08-25 17:21] LABS: Blood Morphology Comment NOT SEEN (NOT SEEN); Platelet Estimate ADEQ; White Blood Cell Scan OK (OK)
--- NOTE | 2020-08-25 18:07 | RAD REPORT ---
EXAM DESCRIPTION: CT - Abdomen Pelvis W Contrast - 08/25/2020 5:51 pm CLINICAL HISTORY: EPIGASTRIC PAIN COMPARISON: No comparisons TECHNIQUE: Biphasic, helical CT imaging of the abdomen and pelvis was performed following 100 ml non -ionic IV contrast. No oral contrast administered. All CT scans are performed using dose optimization technique as appropriate and may include automated exposure control or mA/KV adjustment according to patient size. FINDINGS: No suspicious findings in the lung bases. No pericardial effusion. Liver is borderline to mildly fatty infiltrated. No focal liver parenchymal lesion. No portal vein ab normality. Gallbladder is normal size. No stones are seen. Gallstones can be occult. No gallbladder w all thickening or edema. Biliary tree is normal. No pancreatic or peripancreatic abnormality seen. Sp eliana is unremarkable. Symmetric renal function is seen with no hydronephrosis or suspicious renal mass. No pyelonephritis o r acute parenchymal process. No bladder abnormalities. No adrenal abnormalities. Uterus and ovaries s how no suspicious findings. There is pelvic floor laxity. No gastric wall thickening or edema. No duodenal abnormality identified. Small bowel and colon show n o acute findings. No evidence for appendicitis. No free air, free fluid or inflammatory stranding. No hernia, mass or bulky lymphadenopathy. No suspicious bony findings. IMPRESSION: Contrast enhanced CT abdomen and pelvis showing no acute or emergent finding. No abnormality to explain epigastric pain.
[2020-08-25] MEDS ORDERED: POTASSIUM CL SA 10 MEQ TAB PO ONE (18:25)
--- NOTE | 2020-08-25 18:51 | EDPHYS ---
Physician Documentation [facility] Name: Kay Rousseau Age: 60 yrs Sex: Female : 1960 Arrival Date: 08/25/2020 Time: 15:03 Bed 19 Private MD: ED Physician Octaviano Montiel HPI: 08/25 16:59 This 60 yrs old Female presents to ER via Wheelchair with complaints of Nose pm1 Bleed, Nausea/Vomiting/Diarrhea. 16:59 The patient presents with a nose bleed, occurred from an unknown cause, Patient pm1 bleeding address yesterday in an [facility]. Patient with rhino packing to left nare and was discharged home with antibiotics and pain medication. Onset: The symptoms/episode began/occurred Patient with nose bleed for 5 days. 16:59 Associated signs and symptoms: Pertinent negatives: chest pain, cough, ear ache, fever, pm1 shortness of breath, sore throat. Patient complaining of generalized weakness, nausea and vomiting with eating, 1 week of diarrhea. Patient complaining of epigastric pain. Historical: - Allergies: 15:34 No Known Allergies; iw - Home Meds: 15:35 Prozac 40 mg Oral cap 2 caps once daily [Active]; Synthroid 112 mcg Oral tab 1 tab once iw daily [Active]; Metoprolol Tartrate Oral [Active]; losartan Oral [Active]; clopidogrel 75 mg oral tab once daily [Active]; amlodipine oral once daily [Active]; - PMHx: 15:34 Depression; High Cholesterol; Hypertension; Hypothyroidism; Myocardial infarction; iw - PSHx: 15:34 Heart stents; Knee surgery; iw - Immunization history:: Adult Immunizations up to date. - Social history:: Smoking status: Patient denies any tobacco usage or history of. ROS: 16:59 Constitutional: Negative for fever, chills, and weight loss, Eyes: Negative for injury, pm1 pain, redness, and discharge. 16:59 Neck: Negative for injury, pain, and swelling, Cardiovascular: Negative for chest pain, palpitations, and edema, Respiratory: Negative for shortness of breath, cough, wheezing, and pleuritic chest pain. 16:59 Back: Negative for injury and pain, MS/Extremity: Negative for injury and deformity, Skin: Negative for injury, rash, and discoloration. 16:59 ENT: Positive for nose bleed, Negative for drainage from ear(s), ear pain, sore throat. 16:59 Abdomen/GI: Positive for abdominal pain, nausea, vomiting, and diarrhea, of the epigastric area. 16:59 Neuro: Positive for headache, generalized weakness, Negative for focal deficits. Exam: 16:59 Constitutional: This is a well developed, well nourished patient who is awake, alert, pm1 and in no acute distress. Head/Face: Normocephalic, atraumatic. 16:59 Back: No spinal tenderness. No costovertebral tenderness. Full range of motion. Skin: Warm, dry with normal turgor. Normal color with no rashes, no lesions, and no evidence of cellulitis. MS/ Extremity: Pulses equal, no cyanosis. Neurovascular intact. Full, normal range of motion. 16:59 ENT: External ear(s): are unremarkable, Ear canal(s): are normal, TM's: are normal, Nose: bleeding, is not appreciated, rhino rocket present to left nare. 16:59 Cardiovascular: Exam negative for acute changes, Rate: normal, Rhythm: regular, Pulses: no pulse deficits are appreciated. 16:59 Respiratory: Exam negative for acute changes, respiratory distress, shortness of breath. 16:59 Abdomen/GI: Inspection: obese Palpation: abdomen is soft and non-tender, in all quadrants, mass, is not appreciated, rebound tenderness, is not appreciated. 16:59 Neuro: Exam negative for acute changes, Orientation: is normal, Mentation: is normal, Motor: is normal, moves all fours, Sensation: is normal, no obvious gross deficits. 16:59 Psych: Behavior/mood is anxious, Affect is animated, Oriented to person, place, time, Patient has no thoughts/intents to harm self or others. Vital Signs: 15:35 BP 181 / 92; Pulse 65; Resp 18; Temp 98.3; Pulse Ox 98% on R/A; Weight 88.45 kg; Height iw 5 ft. 3 in. (160.02 cm); 16:35 BP 154 / 78; Pulse 64; Resp 19; Pulse Ox 97% ; rb1 17:30 BP 182 / 97; Pulse 63; Resp 18; Pulse Ox 98% ; rb1 18:30 BP 196 / 94; Pulse 68; Resp 17; Pulse Ox 100% ; rb1 15:35 Body Mass Index 34.54 (88.45 kg, 160.02 cm) iw MDM: 15:36 Patient medically screened. pm1 16:50 ED course: Based on history of diarrhea, poor PO intake due to nausea and vomiting, it pm1 appears that hyponatremia with hypochloremia is due to poor sodium intake. Therefore will give patient IV fluids . 17:05 Data reviewed: vital signs. Data interpreted: Pulse oximetry: on room air is 98 %. pm1 Interpretation: normal. 18:08 Counseling: I had a detailed discussion with the patient and/or guardian regarding: the pm1 historical points, exam findings, and any diagnostic results supporting the discharge/admit diagnosis, lab results, radiology results, the need for outpatient follow up, to return to the emergency department if symptoms worsen or persist or if there are any questions or concerns that arise at home. 18:16 ED course: Patient is feeling better with fluids that have been infused and tells me pm1 that she is ready to go home. Therefore will discharge patient on completion of fluids and give her a prescription of zofran. 18:58 ED course: Patient not vomiting in the ER and passed PO challenge. Drank 2 cups of pm1 water. Patient reports upset stomach and nausea from PO potassium. Will prescribe zofran. 08/25 15:57 Order name: Basic Metabolic Panel; Complete Time: 16:49 pm1 08/25 15:57 Order name: CBC with Diff; Complete Time: 17:28 pm1 08/25 15:57 Order name: Hepatic Function; Complete Time: 16:49 pm1 08/25 15:57 Order name: Lipase; Complete Time: 16:49 pm1 08/25 15:57 Order name: PT-INR; Complete Time: 16:39 pm1 08/25 15:57 Order name: Ptt, Activated; Complete Time: 16:39 pm1 08/25 15:57 Order name: IV Saline Lock; Complete Time: 16:13 pm1 08/25 15:57 Order name: Labs collected and sent; Complete Time: 16:13 pm1 08/25 16:57 Order name: CT Abd/Pelvis - IV Contrast Only; Complete Time: 18:08 pm1 08/25 17:22 Order name: CBC Smear Scan; Complete Time: 17:28 EDMS Administered Medications: 16:12 Drug: Zofran (Ondansetron) 4 mg Route: IVP; Site: right antecubital; rb1 16:35 Follow up: Response: No adverse reaction; Nausea is decreased rb1 17:09 Drug: NS 0.9% 1000 ml Route: IV; Rate: 1000 ml; Site: right antecubital; rb1 19:14 Follow up: IV Status: Completed infusion mg2 18:15 Drug: Potassium Chloride 40 mEq Route: PO; rb1 19:03 Follow up: Response: No adverse reaction rb1 19:03 Drug: Zofran (Ondansetron) 4 mg Route: IVP; Site: right antecubital; rb1 19:13 Follow up: Response: No adverse reaction; Medication administered at discharge. mg2 Disposition: 08/26 07:15 Co-signature as Attending Physician, Octaviano Montiel MD. rn Disposition: 08/25/20 18:50 Discharged to Home. Impression: Hyponatremia, Nausea and vomiting, Diarrhea, unspecified, Hypokalemia, Epistaxis. - Condition is Stable. - Discharge Instructions: Diarrhea, Adult, Nosebleed, Adult, Hyponatremia, Nausea and Vomiting, Adult, Hypokalemia. - Prescriptions for Zofran ODT 4 mg Oral tablet,disintegrating - place 1 tablet by TRANSLINGUAL route every 8 hours As needed; 20 tablet. Phenergan 25 mg Rectal Suppository - insert 1 suppository by RECTAL route every 6 hours As needed; 12 suppository. - Medication Reconciliation Form, Thank You Letter, Antibiotic Education, Prescription Opioid Use form. - Follow up: Emergency Department; When: As needed; Reason: Recheck today's complaints, Continuance of care, Re-evaluation by your physician. Follow up: Private Physician; When: 2 - 3 days; Reason: Recheck today's complaints, Continuance of care, Re-evaluation by your physician. - Problem is new. - Symptoms have improved. Signatures: Dispatcher [employer] EDMS Adriana Flores RN RN iw Nieto, Roman, MD MD rn Barber, Rebecca, RN RN rb1 Alexandre Sotelo, PROFILER OPERATOR PROFILER OPERATOR pm1 Robert Chiang RN RN mg2 Corrections: (The following items were deleted from the chart) 08/25 19:14 18:50 08/25/2020 18:50 Discharged to Home. Impression: Hyponatremia; Nausea and mg2 vomiting; Diarrhea, unspecified; Hypokalemia; Epistaxis. Condition is Stable. Forms are Medication Reconciliation Form, Thank You Letter, Antibiotic Education, Prescription Opioid Use. Follow up: Emergency Department; When: As needed; Reason: Recheck today's complaints, Continuance of care, Re-evaluation by your physician. Follow up: Private Physician; When: 2 - 3 days; Reason: Recheck today's complaints, Continuance of care, Re-evaluation by your physician. Problem is new. Symptoms have improved. pm1
--- NOTE | 2020-08-25 18:51 | ER ---
Nurse's Notes [facility] Name: Kay Rousseau Age: 60 yrs Sex: Female : 1960 Arrival Date: 08/25/2020 Time: 15:03 Bed 19 Private MD: Diagnosis: Hyponatremia;Nausea and vomiting;Diarrhea, unspecified;Hypokalemia;Epistaxis Presentation: 08/25 15:30 Chief complaint: Patient states: nose bleed X 5 days, had rhino rocket placed to left iw nostril last night at ER in [place], has been feeling bad since yesterday, c/o n/v, general weakness, hypertension since yesterday, also has intermittent diarrhea X 1 week. Coronavirus screen: At this time, the client does not indicate any symptoms associated with coronavirus-19. Ebola Screen: Patient negative for fever greater than or equal to 101.5 degrees Fahrenheit, and additional compatible Ebola Virus Disease symptoms Patient denies exposure to infectious person. Patient denies travel to an Ebola-affected area in the 21 days before illness onset. No symptoms or risks identified at this time. Initial Sepsis Screen: Does the patient meet any 2 criteria? No. Patient's initial sepsis screen is negative. Does the patient have a suspected source of infection? No. Patient's initial sepsis screen is negative. Risk Assessment: Do you want to hurt yourself or someone else? Patient reports no desire to harm self or others. Onset of symptoms was August 24, 2020. 15:30 Method Of Arrival: Wheelchair iw 15:30 Acuity: JEREMY 3 iw Historical: - Allergies: 15:34 No Known Allergies; iw - Home Meds: 15:35 Prozac 40 mg Oral cap 2 caps once daily [Active]; Synthroid 112 mcg Oral tab 1 tab once iw daily [Active]; Metoprolol Tartrate Oral [Active]; losartan Oral [Active]; clopidogrel 75 mg oral tab once daily [Active]; amlodipine oral once daily [Active]; - PMHx: 15:34 Depression; High Cholesterol; Hypertension; Hypothyroidism; Myocardial infarction; iw - PSHx: 15:34 Heart stents; Knee surgery; iw - Immunization history:: Adult Immunizations up to date. - Social history:: Smoking status: Patient denies any tobacco usage or history of. Screenin:25 Abuse screen: Denies threats or abuse. Nutritional screening: No deficits noted. rb1 Tuberculosis screening: No symptoms or risk factors identified. Fall Risk None identified. Assessment: 15:25 General: Appears in no apparent distress. comfortable, Behavior is calm, cooperative, rb1 Denies fever. Neuro: Level of Consciousness is awake, alert, obeys commands, Oriented to person, place, time, situation. Neuro: Reports weakness. Cardiovascular: Capillary refill < 3 seconds Patient's skin is warm and dry. Respiratory: Airway is patent Respiratory effort is even, unlabored, Respiratory pattern is regular, symmetrical. GI: Abdomen is non-distended, Reports diarrhea, nausea, vomiting, since x 1 week. : No signs and/or symptoms were reported regarding the genitourinary system. EENT: Reports bloody nose for the past five days. currently has a rhino rocket in the left nare.. 16:22 Reassessment: Patient appears in no apparent distress at this time. Patient and/or rb1 family updated on plan of care and expected duration. Pain level reassessed. Patient is alert, oriented x 3, equal unlabored respirations, skin warm/dry/pink. 17:13 Reassessment: Patient appears in no apparent distress at this time. Patient and/or rb1 family updated on plan of care and expected duration. Pain level reassessed. Patient is alert, oriented x 3, equal unlabored respirations, skin warm/dry/pink. Patient states feeling better. Patient states symptoms have improved. 18:15 Reassessment: Patient appears in no apparent distress at this time. No changes from rb1 previously documented assessment. Vital Signs: 15:35 BP 181 / 92; Pulse 65; Resp 18; Temp 98.3; Pulse Ox 98% on R/A; Weight 88.45 kg; Height iw 5 ft. 3 in. (160.02 cm); 16:35 BP 154 / 78; Pulse 64; Resp 19; Pulse Ox 97% ; rb1 17:30 BP 182 / 97; Pulse 63; Resp 18; Pulse Ox 98% ; rb1 18:30 BP 196 / 94; Pulse 68; Resp 17; Pulse Ox 100% ; rb1 15:35 Body Mass Index 34.54 (88.45 kg, 160.02 cm) ED Course: 15:03 Patient arrived in ED. ag5 15:25 Patient has correct armband on for positive identification. Bed in low position. Call rb1 light in reach. Side rails up X 1. Pulse ox on. NIBP on. Warm blanket given. 15:33 Triage completed. iw 15:35 Arm band placed on. iw 15:36 Alexandre Sotelo, BRAYDEN is PHCP. pm1 15:36 Octaviano Montiel MD is Attending Physician. pm1 16:00 Carlota Dumont, RN is Primary Nurse. rb1 16:11 Inserted saline lock: 22 gauge in right antecubital area, using aseptic technique. rb1 Blood collected. 17:51 CT Abd/Pelvis - IV Contrast Only In Process Unspecified. EDMS 19:13 No provider procedures requiring assistance completed. IV discontinued, intact, mg2 bleeding controlled, No redness/swelling at site. Pressure dressing applied. Administered Medications: 16:12 Drug: Zofran (Ondansetron) 4 mg Route: IVP; Site: right antecubital; rb1 16:35 Follow up: Response: No adverse reaction; Nausea is decreased rb1 17:09 Drug: NS 0.9% 1000 ml Route: IV; Rate: 1000 ml; Site: right antecubital; rb1 19:14 Follow up: IV Status: Completed infusion mg2 18:15 Drug: Potassium Chloride 40 mEq Route: PO; rb1 19:03 Follow up: Response: No adverse reaction rb1 19:03 Drug: Zofran (Ondansetron) 4 mg Route: IVP; Site: right antecubital; rb1 19:13 Follow up: Response: No adverse reaction; Medication administered at discharge. mg2 Outcome: 18:50 Discharge ordered by MD. pm1 19:13 Discharged to home ambulatory, with family. mg2 19:13 Condition: stable 19:13 Discharge instructions given to patient, Instructed on discharge instructions, follow up and referral plans. medication usage, Demonstrated understanding of instructions, follow-up care, medications, Prescriptions given X 2. 19:14 Patient left the ED. mg2 Signatures: Dispatcher [employer] EDMS Adriana Flores RN RN iw Carlota Dumont, RN RN rb1 Alexandre Sotelo, BRAYDEN GANG INVESTIGATOR pm1 Robert Chiang RN RN mg2 Stephanie Carolina ag5
[2020-08-25 19:20] VITALS: TEMP 98.3
[2020-08-25 19:26] VITALS: BP 196/94; O2SAT 100
== END 2020-08-25 19:14 | disposition home or self-care (01) ==
LOC: ER 15:02
DX: R04.0 Epistaxis (principal); E87.6 Hypokalemia; E87.1 Hypo-osmolality and hyponatremia; R11.2 Nausea with vomiting, unspecified; R19.7 Diarrhea, unspecified
CPT/HCPCS: 96361; 85025; 80048; 36415; 85610; 80076; 85730; 83690; 74177; 96374; 99284; Q9967; J7030; J2405 ×2

== ENCOUNTER 2021-06-17 06:32 | Day surgery (SDC) | payer OTHER ==
[2021-06-14 13:16] LABS: Absolute Lymphocytes (CBC) 1.5 K/uL (0.7-4.9); Hematocrit 28.5 % (36.0-45.0); Lymphocytes % 22.3 % (15.3-44.8); MPV 7.4 fL (7.6-11.3); RBC Red Blood Cell Count 3.29 M/uL (3.86-4.86)
--- NOTE | 2021-06-14 13:18 | RAD REPORT ---
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 FINDINGS: Mild linear atelectasis is seen in the left lower lung laterally. The lungs are otherwise clear. Heart is moderately enlarged. No displaced fractures.
[2021-06-14 13:29] LABS: Protime INR 0.97
[2021-06-14 13:31] LABS: Potassium 3.6 mmol/L (3.5-5.1)
[2021-06-17] MEDS ORDERED: LIDOCAINE 1% 20 ML MDV ONE (07:10)
[2021-06-17] MEDS ORDERED: HEPA 1000U/500MLS 1,000 UNIT/500 ML BAG IV ONE (07:10)
[2021-06-17] MEDS ORDERED: NA CHLORIDE 0.9% 500 ML ONE (07:22)
[2021-06-17] MEDS ORDERED: MIDAZOLAM HCL 2 MG/2 ML INJ ONE (07:39)
[2021-06-17] MEDS ORDERED: FENTANYL CITR 100 MCG/2 ML ONE (07:40)
[2021-06-17] MEDS ORDERED: NITROGLYCERIN 100 MCG/ML SYR (for cath lab use only) IV ONE (07:41)
[2021-06-17] MEDS ORDERED: NA CHLORIDE 0.9% 50 ML ONE (07:41)
[2021-06-17] MEDS ORDERED: NITROGLYCERIN/D5W 25 MG/250 ML BTL IV ONE (07:41)
[2021-06-17] MEDS ORDERED: PRASUGREL (EFFIENT) 10 MG TAB ONE (08:21)
[2021-06-17 14:33] VITALS: TEMP 98
[2021-06-17 15:17] VITALS: BP 129/66
[2021-06-17 16:20] VITALS: O2SAT 99
--- NOTE | 2021-06-18 17:17 | OP ---
Date of Procedure: 06/17/2021 Surgeon: Ramin Morejon MD Valet Parker: Mr. Randell Machuca. The patient will remain in the hospital for approximately 8 hours. She will be going home today on h er home medications that do include beta-blockers, aspirin, Plavix, and statin. Plan to bring her ba ck in about 2 weeks for stage intervention with a stent of the RCA. Procedures: Left heart catheterization, selective coronary arteriogram, primary stent of the LAD. Indication: Coronary artery disease, unstable angina. Procedure In Detail: Ms. Rousseau is 61, was brought to the slab off mill tender as an outpatient, prepped and dr katrin in the routine sterile fashion. Given Versed and fentanyl for sedation. A 6-Kinyarwanda sheath was introduced in the right common femoral artery successfully. Angiography there was normal. Angio-Sea l was used to close the case. Mima catheter left and right were used to do the heart catheterizat ion. She had a 70% mid RCA lesion that was very dominant. The left circumflex was normal. Left khushbu n was normal. She had a patent proximal LAD stent, but after that stent, there was about an 80% sten osis. We decided to intervene. An XBLAD 3.5 with side-hole guide catheter was used to cannulate the left main. A [place] wire 0.014 was used to cross the lesion. A 3.0 x 12 stent the steno sis was dilated to 11 atmospheres for 30 seconds with 0% residual. I did back up the balloon and dil ated the overlap of both stents. Again, there was 0% residual. The patient tolerated the procedure well. There were no complications. Total blood loss was 5 mL. Diagnosis: Coronary artery disease status post successful primary stent of the mid LAD. Anesthesia: Total conscious sedation was 60 minutes. The patient received Angiomax, aspirin, and Effient during the procedure. NB/MODL Voice ID: [id number] Report ID: [id number]
== END 2021-06-17 16:21 | disposition home or self-care (01) ==
LOC: CCL 06:32
DX: I25.110 Atherosclerotic heart disease of native coronary artery with unstable angina pectoris (principal); I10 Essential (primary) hypertension; E78.5 Hyperlipidemia, unspecified; E03.9 Hypothyroidism, unspecified; G62.9 Polyneuropathy, unspecified; F32.9 Major depressive disorder, single episode, unspecified; Z95.5 Presence of coronary angioplasty implant and graft; Z20.822 Contact with and (suspected) exposure to COVID-19
CPT/HCPCS: 85025; 80048; 36415; 85610; 85347 ×2; 85730; 71046; 92928; 93454; U0003; C1893; C1760; C1725; C1877; J2250; J3010; J0583; J7040; J1644

== ENCOUNTER 2021-07-01 07:29 | Day surgery (SDC) | payer OTHER ==
[2021-06-27 16:14] LABS: Potassium 3.8 mmol/L (3.5-5.1)
[2021-06-27 16:21] LABS: Absolute Lymphocytes (CBC) 1.5 K/uL (0.7-4.9); Basophils % 0.9 % (0-1.3); Hematocrit 26.6 % (36.0-45.0); Lymphocytes % 29.1 % (15.3-44.8); MPV 7.4 fL (7.6-11.3); RBC Red Blood Cell Count 3.16 M/uL (3.86-4.86)
[2021-06-27 16:25] LABS: Protime INR 0.92
--- NOTE | 2021-06-28 11:11 | EKG ---
Test Date: 2021-06-27 Test Time: 14:36:47 Ore Smelter: CHULA MEASUREMENT RESULTS: Intervals: Rate: 56 DC: 166 QRSD: 80 QT: 458 QTc: 441 [place]: P: 28 DC: 166 QRS: 49 T: 48 INTERPRETIVE STATEMENTS: Sinus bradycardia Otherwise normal ECG Compared to ECG 09/10/2019 19:09:16 Left ventricular hypertrophy no longer present ST (T wave) deviation no longer present Electronically Signed On 06-28-21 11:07:46 CDT by Ramin Morejon
[2021-07-01] MEDS ORDERED: NA CHLORIDE 0.9% 500 ML ONE (08:07)
[2021-07-01] MEDS ORDERED: MIDAZOLAM HCL 2 MG/2 ML INJ ONE (08:40)
[2021-07-01] MEDS ORDERED: HEPA 1000U/500MLS 1,000 UNIT/500 ML BAG IV ONE (08:40)
[2021-07-01] MEDS ORDERED: NITROGLYCERIN 100 MCG/ML SYR (for cath lab use only) IV ONE (08:41)
[2021-07-01] MEDS ORDERED: ATROPINE SULF 1 MG/10 ML SYR IV ONE (08:41)
[2021-07-01] MEDS ORDERED: NA CHLORIDE 0.9% 50 ML ONE (08:41)
[2021-07-01] MEDS ORDERED: NITROGLYCERIN/D5W 25 MG/250 ML BTL IV ONE (08:41)
[2021-07-01] MEDS ORDERED: FENTANYL CITR 100 MCG/2 ML ONE (08:41)
[2021-07-01] MEDS ORDERED: PRASUGREL (EFFIENT) 10 MG TAB ONE (09:34)
[2021-07-01 12:41] VITALS: TEMP 98.2
[2021-07-01 16:37] VITALS: BP 141/57; O2SAT 96
--- NOTE | 2021-07-01 22:35 | OP ---
Surgeon: Ramin Morejon MD Baton Teacher: Mr. Randell Machuca. Reason For Admission: Staged procedure for primary mid RCA stent stenosis. Procedure Performed: Selective coronary arteriogram of the right RCA with primary stent of the mid L AD. Procedure In Detail: The patient was prepped and draped in routine sterile fashion. She was given V ersed and fentanyl for sedation. We used the left groin for access because the right groin has an An anna-Seal approximately 14 days ago. This was done under the Seldinger technique with 10 mL of Xyloca ine. Angiography there was normal. Angio-Seal was used to close the case. We attempted a JR4 guide and then a 3DRC guide without any success. The modified AR1 guide was used to cannulate the right m ain successfully. An 80% mid RCA stenosis was noted and that was reduced to 0% residual after primar y stent of 3.0 x 16 Synergy stent. A [place] wire 0.014 extra length was used to cross the lesion. T he patient received 30 of Effient during the procedure. She received Angiomax. ACT was 354. The pa tient tolerated the procedure well. There were no complications. Blood Loss: 5 mL. Anesthesia: Total conscious sedation 45 minutes. Postoperative Diagnosis: Coronary artery disease, status post successful primary stent of the mid RC A. The patient will go home today on her home medications, which include aspirin, Plavix, statin and bet a-blockers. I will see her in the office in 2 weeks. KIM/RYAN Voice ID: [id number] Report ID: [id number]
== END 2021-07-01 16:00 | disposition home or self-care (01) ==
LOC: CCL 07:29
DX: I25.110 Atherosclerotic heart disease of native coronary artery with unstable angina pectoris (principal); I10 Essential (primary) hypertension; E78.5 Hyperlipidemia, unspecified; G62.9 Polyneuropathy, unspecified; E03.9 Hypothyroidism, unspecified; F32.9 Major depressive disorder, single episode, unspecified; Z95.5 Presence of coronary angioplasty implant and graft; Z20.822 Contact with and (suspected) exposure to COVID-19
CPT/HCPCS: 93005; 85025; 80048; 36415; 85610; 85347 ×2; 85730; 92928; U0003; C1893; C1760; C1725; J2250; J3010; J0583; J7040; J1644

== ENCOUNTER 2024-09-13 17:37 | Emergency (ER) | payer OTHER ==
--- OUTSIDE RECORDS SUMMARY | 2024-09-13 17:40 | XMS REPORT | Continuity of Care Document ---
Author Name Unknown Address [address] [facility] [address] [place] [address] [facility] Address [address] [facility] [address] [place] [address] Care Team Providers Care Music Publicist Name Role Phone GC_GCBZW_Kadiyala_S Attending Clinician Golden Cash Attending Clinician Egdardo Iniguez Attending Clinician Zach Duong S Attending Clinician [phone] ZACH CHUNG Attending Clinician ADEN Zhu Attending Clinician Lacie cardenas GC_GCBZW_Kadiyala_S Admitting Clinician Onur morrell Physician, No Primary or Family Admitting Clinic sue Unavailable Payers Payer Name Policy Type Policy Number Effective Date Expirati on Date Source [facility] [id number] 2018 00:00:00 Allergies, Adverse Reactions, Alerts Allergy Name Allergy Type Status Severity Reaction(s) Onset Date Inactive Date Treating Clinician Comments Source No Known Drug Allergie s DA Active U 04-09 00:00: 00 [facility] No Known Drug Allergie s DA Active U 04-09 00:00: 00 [facility] No Known Drug Allergie s DA Active U 03-04 00:00: 00 [facility] No Known Drug Allergie s DA Active U 03-04 00:00: 00 [facility] No Known Drug Allergie s DA Active U 2017-11 00:00: 00 [facility] No Known Drug Allergie s DA Active U 2017-11 00:00: 00 [facility] NO KNOWN ALLERGIE S Drug Class Active [facility] Encounters Start Date/Time End Date/Time Encounter Type Admission Type Attending [facility] Facility Care Department Encounter ID Source 2023-09-08 00:00:00 2023-09-08 00:00:00 Outpatient GC_GCBZW_Ka diyala_S PRIV PRIV [id number] [facility] 2023-09-07 00:00:00 2023-09-07 00:00:00 Outpatient GC_GCBZW_Ka diyala_S PRIV PRIV [id number] [facility] 2021-04-11 21:46:25 2021-04-11 21:46:25 Outpatient Sunny, Golden ARNOLDTO HCATO [id number] [facility] 2021-03-06 01:52:06 2021-03-06 01:52:06 Outpatient Sunny Golden ARNOLDTO HCATO [id number] [facility] 2021-02-18 09:00:00 2021-02-18 09:00:00 Outpatient Sunny, Golden ARNOLDTO PAIN [id number] [facility] 2020-11-06 13:45:00 2020-11-06 13:45:00 Outpatient Edgardo Diez HCATO RADI [id number] [facility] 2020-11-06 09:00:00 2020-11-06 09:00:00 Outpatient R [facility] [id number] [facility] 2020-11-06 09:00:00 2020-11-06 09:00:00 Outpatient R [facility] [id number] [facility] 2020-08-07 10:19:18 2020-08-09 11:06:03 Office Visit Reji Zach [facility]ine [id number] 2020-08-07 13:07:41 2020-08-07 23:59:00 Outpatient R ZACH CHUNG [facility] [id number] [facility] 2020-08-07 11:00:00 2020-08-07 11:00:00 Outpatient R ZACH CHUNG [facility] [id number] [facility] 2020-03-02 09:45:00 2020-03-02 09:45:00 Outpatient R ADEN DURAN [facility] [id number] [facility] Results Test Description Test Time Test Comments Results Resul t Comments Source - XR FLUORO FOR SPINE INJ 2021-04-09 11:05:00 [facility] 1960 Sex: F Patient Name: JOEY ARTEAGA Unit No: [id number] EXAMS: CPT CODE: [id number] XR FLUORO FOR SPINE INJ 77172 LUMBAR EPIRADICULAR INJECTION REFERRAL PHYSICIAN: Dr. Correa PREOPERATIVE DIAGNOSIS: Lumbar Radiculitis POSTOPERATIVE DIAGNOSIS: Lumbar radiculitis PROCEDURES PERFORMED: Fluoroscopically guided needle localization of the left L4 and left L5 spinal nerves with transforaminal epidurograms and epidural injection of local anesthetic and steroid. FINDINGS: Good flow of dye through both neuroforamen. Slight retrolisthesis of L4 on L5 with loss of disc height by approximately 50% at L4/5. Preinjection VAS 8/10. Postinjection VAS 0/10. Steroid response pending follow-up. ESTIMATED BLOOD LOSS: Minimal ANESTHESIA: TIVA COMPLICATIONS: None DETAILS OF PROCEDURE: After obtaining stable vital signs, informed consent and IV access, with no contraindications, the patient was taken to the operating room and placed in a prone position with all extremities padded and appropriate monitors placed. The patient was sterilely prepped and draped over the lumbosacral spine. Using fluoroscopic visualization the insertion sites were marked for paravertebral approaches and using standard technique, a 22 gauge needle was advanced to the base of each pedicle without paresthesias. Isovue-300 contrast 0.2 mL of was injected incrementally with frequent negative aspirations to produce each epidurogram. There were no signs of intravascular or intrathecal uptake. Bupivicaine 0.75% her 0.5 mL with lidocaine 4% 1 mL and Decadron 10 mg was then incrementally injected with frequent negative aspirations and again there were no signs of intravascular or intrathecal uptake. The needles were removed and the patient was taken to the PACU in good condition. Image: Image 1 Image: Image 2 at 1105 Reported and signed by: GOLDEN CORREA MD CC: Technologist: Jennifer Moss(R) Transcribed D/ (1105) [email or web address] [facility] NAME: JOEY ARTEAGA [address] [facility] PHYS: Golden Wong [place], [place] [address] : 1960 AGE: 60 SEX: F LOC: LING PHONE #: [phone] EXAM DATE: 04/09/2021 STATUS: REG [facility] FAX #: [phone] RAD #: D/C DT PAGE 1 Signed Report Patient Name: JOEY ARTEAGA Unit No: [id number] EXAMS: CPT CODE: [id number] XR FLUORO FOR SPINE INJ 61135 (Continued) Orig Print D/T: S: 04/09/2021 (1108) [facility] NAME: JOEY ARTEAGA [address] [facility] PHYS: Golden Wong [place], [place] [address] : 1960 AGE: 60 SEX: F LOC: MernaJOANN PHONE #: [phone] EXAM DATE: 04/09/2021 STATUS: REG [facility] FAX #: [phone] RAD #: D/C DT PAGE 2 Signed Report - XR FLUORO FOR SPINE INJ 2021-03-04 14:45:00 [facility] : 1960 Sex: F Patient Name: JOEY ARTEAGA Unit No: [id number] EXAMS: CPT CODE: [id number] XR FLUORO FOR SPINE INJ 63689 LUMBAR EPIRADICULAR INJECTION REFERRAL PHYSICIAN: Dr. Diez PREOPERATIVE DIAGNOSIS: Lumbar Radiculitis POSTOPERATIVE DIAGNOSIS: Lumbar radiculitis PROCEDURES PERFORMED: Fluoroscopically guided needle localization of the left L5 and left L4 spinal nerves with transforaminal epidurograms and epidural injection of local anesthetic and steroid. FINDINGS: Loss of disc height noted at L4-5 with slight retrolisthesis L4 on 5. Good flow of dye into the anterior epidural space L5 is partially sacralized. Preinjection VAS 7/10. Postinjection VAS 0/10. Steroid response pending follow-up. ESTIMATED BLOOD LOSS: Minimal ANESTHESIA: TIVA COMPLICATIONS: None DETAILS OF PROCEDURE: After obtaining stable vital signs, informed consent and IV access, with no contraindications, the patient was taken to the operating room and placed in a prone position with all extremities padded and appropriate monitors placed. The patient was sterilely prepped and draped over the lumbosacral spine. Using fluoroscopic visualization the insertion sites were marked for paravertebral approaches and using standard technique, a 22 gauge needle was advanced to the base of each pedicle without paresthesias. Isovue-300 contrast 0.2 mL of was injected incrementally with frequent negative aspirations to produce each epidurogram. There were no signs of intravascular or intrathecal uptake. Bupivicaine 0.75% 0.25 mL with lidocaine 4% 0.75 mL and Decadron 10 mg was then incrementally injected with frequent negative aspirations and again there were no signs of intravascular or intrathecal uptake. The needles were removed and the patient was taken to the PACU in good condition. Image: Image 1 Image: Image 2 at 1445 Reported and signed by: GOLDEN CORREA MD CC: Golden Correa MD Technologist: CATHRYN ALCALA RT(R) Transcribed D/ (0040) [email or web address] [facility] NAME: JOEY ARTEAGA [address] [facility] PHYS: GINCHIP Nevaeh CaballeroGolden hitchcock [place], [place] [address] : 1960 AGE: 60 SEX: F LOC: MernaJOANN PHONE #: [phone] EXAM DATE: 03/04/2021 STATUS: REG [facility] FAX #: [phone] RAD #: D/C DT PAGE 1 Signed Report Patient Name: JOEY ARTEAGA Unit No: [id number] EXAMS: CPT CODE: [id number] XR FLUORO FOR SPINE INJ 66710 (Continued) Orig Print D/T: S: 03/04/2021 (0734) [facility] NAME: JOEY ARTEAGA [address] [facility] PHYS: Golden Wong [place], [place] [address] : 1960 AGE: 60 SEX: F LOC: LING PHONE #: [phone] EXAM DATE: 03/04/2021 STATUS: REG [facility] FAX #: [phone] RAD #: D/C DT PAGE 2 Signed Report - XR FLUORO FOR SPINE INJ 2021-02-18 15:19:00 [facility] 1960 Sex: F Patient Name: JOEY ARTEAGA Unit No: [id number] EXAMS: CPT CODE: [id number] XR FLUORO FOR SPINE INJ 11478 LUMBAR EPIRADICULAR INJECTION REFERRAL PHYSICIAN: Dr. Diez PREOPERATIVE DIAGNOSIS: Lumbar Disc Degeneration and Radiculitis POSTOPERATIVE DIAGNOSIS: Lumbar disc degeneration at radiculitis PROCEDURES PERFORMED: Fluoroscopically guided needle localization of the left L3 spinal nerves with transforaminal epidurograms and epidural injection of local anesthetic and steroid. FINDINGS: Infraneural approaches were taken at each level. Good flow of dye through the posterior epidural space and into the outer annulus as intended. Preinjection VAS 10/10. Postinjection VAS 0/10. Steroid response pending follow-up. ESTIMATED BLOOD LOSS: Minimal ANESTHESIA: TIVA COMPLICATIONS: None DETAILS OF PROCEDURE: After obtaining stable vital signs, informed consent and IV access, with no contraindications, the patient was taken to the operating room and placed in a prone position with all extremities padded and appropriate monitors placed. The patient was sterilely prepped and draped over the lumbosacral spine. Using fluoroscopic visualization the insertion sites were marked for paravertebral approaches and using standard technique, a 25 gauge needle was advanced to the base of each superior pedicle without paresthesias. Isovue-300 contrast 0.2 mL of was injected incrementally with frequent negative aspirations to produce each epidurogram. There were no signs of intravascular or intrathecal uptake. Intradiscal uptake was seen at each level. Bupivicaine 0.75% 0.25 mL with lidocaine 4% 0.5 mL and triamcinolone 30 mg with clindamycin (150 mg/mL) was then incrementally injected with frequent negative aspirations and again there were no signs of intravascular or intrathecal uptake. The needles were removed and the patient was taken to the PACU in good condition. Image: Image 1 Image: Image 2 at 1519 Reported and signed by: GOLDEN CORREA MD CC: Technologist: Jennifer Moss(R) Transcribed D/ (1949) [email or web address] [facility] NAME: JOEY ARTEAGA [address] [place] [address] PHYS: Golden Wong [place], [place] [address] : 1960 AGE: 60 SEX: F LOC: LING PHONE #: [phone] EXAM DATE: 02/18/2021 STATUS: REG [facility] FAX #: [phone] RAD #: D/C DT PAGE 1 Signed Report Patient Name: JOEY ARTEAGA Unit No: [id number] EXAMS: CPT CODE: [id number] XR FLUORO FOR SPINE INJ 64998 (Continued) Orig Print D/T: S: 02/18/2021 (1522) [facility] NAME: JOEY ARTEAGA [address] [facility] PHYS: Golden Wong [place], [place] [address] : 1960 AGE: 60 SEX: F LOC: MernaJOANN PHONE #: [phone] EXAM DATE: 02/18/2021 STATUS: REG [facility] FAX #: [phone] RAD #: D/C DT PAGE 2 Signed Report - MRI L-SPINE W/O CONT 2020-11-07 07:50:00 [facility] 1960 Sex: F Patient Name: JOEY ARTEAGA Unit No: [id number] EXAMS: CPT CODE: [id number] MRI L-SPINE W/O CONT 50047 TECHNIQUE: Multiplanar, multisequence MRI examination performed of the lumbar spine without intravenous contrast material. COMPARISON: Concurrent radiographs FINDINGS: Transitional lumbosacral anatomy is present. For the purposes of this exam, 5 lumbar type vertebrae are numbered with partial sacralization of the L5 transverse processes. Alignment: Grade 1 retrolisthesis of L4-L5 Bone Lesion: No suspicious osseous lesion. Fracture: None present. Paraspinal Soft Tissues: Unremarkable. Conus Medullaris: Termination at T12/L1 level. Morphology is normal. L1/2: Small disc bulge is present. There is mild left foraminal stenosis. No significant right foraminal or central canal stenosis. L2/3: Small left asymmetric disc bulge contributes to mild left foraminal stenosis. No significant right foraminal or central canal stenosis. L3/4: Disc desiccation and small bulge. Moderate bilateral facet hypertrophy. There is ovor-eh-ghrazrod central canal stenosis as well as mild foraminal stenosis. L4/5: Grade 1 retrolisthesis. A large disc bulge is noted with superimposed left paracentral disc extrusion which measures 5 mm in AP dimension, extending caudally by 5 mm. The extrusion impinges the traversing left L5 nerve. Moderate central canal stenosis is present as well as mild to moderate left, moderate right foraminal stenosis. L5/S1: No disc bulge or herniation. No significant foraminal or central canal stenosis. IMPRESSION: 1. Transitional lumbosacral anatomy. 2. Multilevel spondylosis with a left paracentral disc extrusion at L4-L5 which impinges the traversing left L5 nerve. at 0750 Reported and signed by: Maikol Velasco M.D. CC: Edgardo Diez MD Technologist: CLEVE MAILK.MRI,CT Transcribed D/ (0750) Axel [facility] [place] [facility] NAME: JOEY ARTEAGA [address] [facility] PHYS: Edgardo Patel MD : 1960 AGE: 60 SEX: F [place] [address] LOC: Y.MRI PHONE #: [phone] EXAM DATE: 11/06/2020 STATUS: [facility]P CLI FAX #: [phone] RAD #: D/C DT PAGE 1 Signed Report Patient Name: JOEY ARTEAGA Unit No: [id number] EXAMS: CPT CODE: [id number] MRI L-SPINE W/O CONT 51606 (Continued) Orig Print D/T: S: 11/07/2020 (0754) [facility] [place] [facility] NAME: JOEY ARTEAGA [address] [facility] PHYS: Edgardo Patel MD : 1960 AGE: 60 SEX: F [place] [address] LOC: Y.MRI PHONE #: [phone] EXAM DATE: 11/06/2020 STATUS: [facility] FAX #: [phone] RAD #: D/C DT PAGE 2 Signed Report - XR L-SPINE W/BEND VIEW 2020-11-06 18:49:00 [facility] : 1960 Sex: F Patient Name: JOEY ARTEAGA Unit No: [id number] EXAMS: CPT CODE: [id number] XR L-SPINE W/BEND VIEW 55457 COMPARISON: Concurrent MRI. IMAGES PROVIDED: 7 views of the lumbar spine FINDINGS: Transitional lumbosacral anatomy is present. For the purposes of this exam, 5 lumbar type vertebrae are numbered with partial sacralization of the L5 transverse processes. Grade 1 retrolisthesis of L4-L5. No pathologic motion with flexion/extension. No acute fracture. Disc degeneration is greatest at the L4-L5 level. Moderate lower lumbar facet hypertrophy. Some tissues are within normal limits. Joints are maintained. IMPRESSION: Multilevel lumbar spondylosis, greatest at L4-L5. No evidence of dynamic instability. at 1849 Reported and signed by: Maikol Velasco M.D. CC: Edgardo Diez MD Technologist: RT. Belen(R) Transcribed D/ (1848) ZekeSLJ [facility] [place] [facility] NAME: JOEY ARTEAGA [address] [facility] PHYS: Edgardo Patel MD : 1960 AGE: 60 SEX: F [place], [place] [address] LOC: Y.MRI PHONE #: [phone] EXAM DATE: 11/06/2020 STATUS: REG CLI FAX #: [phone] RAD #: D/C DT PAGE 1 Signed Report Patient Name: JOEY ARTEAGA Unit No: [id number] EXAMS: CPT CODE: [id number] XR L-SPINE W/BEND VIEW 01464 (Continued) Orig Print D/T: S: 11/06/2020 (185) [facility] [place] [facility] NAME: JOEY ARTEAGA [address] [facility] PHYS: Edgardo Patel MD : 1960 AGE: 60 SEX: F [place], [place] [address] LOC: Y.MRI PHONE #: [phone] EXAM DATE: 11/06/2020 STATUS: REG CLI FAX #: [phone] RAD #: D/C DT PAGE 2 Signed Report
[2024-09-13] MEDS ORDERED: TDAP (DIPHTH,PERTUSS(ACELL),TET VAC) 0.5 ML VIAL IMVAC ONE (18:35)
--- NOTE | 2024-09-13 18:43 | ER ---
Nurse's Notes [facility] Name: Kay Rousseau Age: 64 yrs Sex: Female : 1960 Arrival Date: 09/13/2024 Time: 17:37 Bed 10 Private MD: Diagnosis: Contusion of forearm;Abrasion of left forearm-skintear;Abrasion of left upper leg Presentation: 09/13 18:00 Coronavirus screen: Client denies travel out of the [place] in the last 14 days. Ebola tm6 Screen: Patient negative for fever greater than or equal to 101.5 degrees Fahrenheit, and additional compatible Ebola Virus Disease symptoms Patient denies exposure to infectious person. Patient denies travel to an Ebola-affected area in the 21 days before illness onset. No symptoms or risks identified at this time. Risk Assessment: Do you want to hurt yourself or someone else? Patient reports no desire to harm self or others. Onset of symptoms was September 13, 2024. 18:00 Method Of Arrival: Ambulatory tm6 18:00 Acuity: JEREMY 4 tm6 18:01 Chief complaint: Patient states: I was trying to get a chair out of the swimming pool, tm6 and I fell and hit my left forearm. Arm is bleeding, hematoma. Takes blood thinners. Initial Sepsis Screen: Does the patient meet any 2 criteria? No. Patient's initial sepsis screen is negative. Does the patient have a suspected source of infection? No. Patient's initial sepsis screen is negative. Triage Assessment: 18:01 General: Appears in no apparent distress. Behavior is calm, cooperative. Pain: tm6 Complains of pain in dorsal aspect of left forearm Pain currently is 5 out of 10 on a pain scale. EENT: No signs and/or symptoms were reported regarding the EENT system. Neuro: Level of Consciousness is awake, alert, obeys commands, Oriented to person, place, time, situation. Cardiovascular: Patient's skin is warm and dry. Respiratory: Airway is patent Respiratory effort is even, unlabored, Respiratory pattern is regular, symmetrical. GI: No signs and/or symptoms were reported involving the gastrointestinal system. Abdomen is round non-distended. : No signs and/or symptoms were reported regarding the genitourinary system. Derm: Wound noted dorsal aspect of left forearm Wound is skin tear and hematoma to left forearm. Musculoskeletal: Reports pain in dorsal aspect of left forearm Pain is 5 out of 10 on a pain scale. Historical: - Allergies: 17:58 No Known Allergies; tm6 - PMHx: 17:58 Depression; High Cholesterol; Hypertension; Hypothyroidism; Myocardial infarction; tm6 - Immunization history:: Client reports having NOT received the Covid vaccine. - Infectious Disease History:: Denies. - Social history:: Smoking status: Patient denies any tobacco usage or history of. Patient/guardian denies using alcohol. Vital Signs: 18:00 Temp 98.5(O); tm6 18:00 BP 158 / 93; Pulse 55; Resp 18; Pulse Ox 99% on R/A; MAP 110 mmHg; Weight 81.65 kg; tm6 Height 5 ft. 3 in. ; Pain 5/10; 18:00 Body Mass Index 31.89 (81.65 kg, 160.02 cm) tm6 18:00 Pain Scale: Adult tm6 ED Course: 17:40 Patient arrived in ED. mr 17:47 Catarina Reid FNP-C [facility] kb 17:47 Leland Owen MD is Attending Physician. kb 18:00 Triage completed. tm6 18:00 Arm band placed on right wrist. tm6 Administered Medications: 19:44 Drug: Boostrix Tdap IM 0.5 ml IM once; as a single dose Route: IM; Site: right deltoid; hb Outcome: 18:43 Discharge ordered by . kb 19:44 Patient left the ED. Signatures: Catarina Reid FNP-C [employer]-Nya Kelly, Krystin Winters, RN RN Jez Castillo RN RN tm6 Corrections: (The following items were deleted from the chart) 18:00 17:58 PSHx: None; tm6 tm6
--- NOTE | 2024-09-13 18:43 | EDPHYS ---
Physician Documentation [facility] Name: Kay Rousseau Age: 64 yrs Sex: Female : 1960 Arrival Date: 09/13/2024 Time: 17:37 Bed 10 Private MD: ED Physician Leland Owen HPI: 09/13 18:41 This 64 yrs old Female presents to ER via Ambulatory with complaints of Fall Injury, kb Skin Tear(s), Arm Swelling. 18:41 Pt is a 64 year old female who presents for skin tear and swelling to left forearm kb after a fall earlier today. States she was trying to get a chair out of the pool and fell. Denies hitting head, loc. States she wasn't going to come, but the swelling got worse so she was concerned that she would get a bloodclot. . Historical: - Allergies: 17:58 No Known Allergies; tm6 - PMHx: 17:58 Depression; High Cholesterol; Hypertension; Hypothyroidism; Myocardial infarction; tm6 - Immunization history:: Client reports having NOT received the Covid vaccine. - Infectious Disease History:: Denies. - Social history:: Smoking status: Patient denies any tobacco usage or history of. Patient/guardian denies using alcohol. ROS: 18:39 Constitutional: As per HPI kb Exam: 18:39 Constitutional: This is a well developed, well nourished patient who is awake, alert, kb and in no acute distress. Head/Face: Normocephalic, atraumatic. ENT: Moist Mucous membranes Cardiovascular: Regular rate Respiratory: Respirations even and unlabored. No increased work of breathing. Talking in full sentences MS/ Extremity: Pulses equal, no cyanosis. Neurovascular intact. Full, normal range of motion. Neuro: Awake and alert, GCS 15, oriented to person, place, time, and situation. 18:39 Skin: abrasions with ecchymosis to left lower extremity. skin tear with large hematoma to left forearm. No bony tenderness, full ROM. Vital Signs: 18:00 Temp 98.5(O); tm6 18:00 BP 158 / 93; Pulse 55; Resp 18; Pulse Ox 99% on R/A; MAP 110 mmHg; Weight 81.65 kg; tm6 Height 5 ft. 3 in. ; Pain 5/10; 18:00 Body Mass Index 31.89 (81.65 kg, 160.02 cm) tm6 18:00 Pain Scale: Adult tm6 MDM: 17:47 Medical Screening Exam initiated kb 18:40 Differential diagnosis: abrasion, contusion, skin tear, hematoma, laceration, fracture. kb Data reviewed: vital signs, nurses notes. Test considered but Not performed: X-ray: forearm x-ray considered but pt has no bony tenderness and full ROM. Counseling: I had a detailed discussion with the patient and/or guardian regarding the historical points, exam findings, and any diagnostic results supporting the discharge/admit diagnosis, the need for outpatient follow up, a family practitioner, to return to the emergency department if symptoms worsen or persist or if there are any questions or concerns that arise at home. 09/13 18:05 Order name: Wound Care; Complete Time: 19:44 kb 09/13 18:05 Order name: Wound dressing; Complete Time: 19:44 kb Administered Medications: 19:44 Drug: Boostrix Tdap IM 0.5 ml IM once; as a single dose Route: IM; Site: right deltoid; hb Disposition Summary: 09/13/24 18:43 Discharge Ordered Notes: Location: Home kb Condition: Stable kb Diagnosis - Contusion of forearm kb - Abrasion of left forearm - skintear kb - Abrasion of left upper leg kb Followup: kb - With: Emergency Department - When: As needed - Reason: Worsening of condition Followup: kb - With: Private Physician - When: 2 - 3 days - Reason: Recheck today's complaints, Continuance of care, Re-evaluation by your physician Discharge Instructions: - Discharge Summary Sheet kb - Hematoma, Hqrw-nl-Lztx kb - Contusion, Koow-kr-Xoio kb - Skin Tear, Wlkc-bl-Wmtk kb Forms: - Medication Reconciliation Form kb - Antibiotic Education kb - Prescription Opioid Use kb - Patient Portal Instructions kb - Leadership Thank You Letter kb Signatures: Catarina Reid FNP-C FNP-Ckb Baxter, Heather, RN RN Jez Castillo RN RN tm6 Corrections: (The following items were deleted from the chart) 18:00 17:58 PSHx: None; tm6 tm6
[2024-09-13] MEDS ORDERED: LIDOCAINE HCL JELLY 2% 6 ML SYRINGE TOP ONE (18:46)
[2024-09-13 20:07] VITALS: BP 150/100; TEMP 97.9; O2SAT 98
== END 2024-09-13 19:44 | disposition home or self-care (01) ==
LOC: ER 17:37
DX: S50.812A Abrasion of left forearm, initial encounter (principal); S70.312A Abrasion, left thigh, initial encounter; S50.12XA Contusion of left forearm, initial encounter; W18.30XA Fall on same level, unspecified, initial encounter
CPT/HCPCS: 96372; 99283

== ENCOUNTER 2025-03-15 01:33 | Emergency (ER) | payer BC, OTHER ==
--- OUTSIDE RECORDS SUMMARY | 2025-03-15 01:37 | XMS REPORT | Continuity of Care Document ---
Author Name Unknown Address [address] [facility] [address] [place] [address] [facility] Address [address] [facility]. 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 Name Role Phone GC_GCBZW_Kadiyala_S Attending Clinician Golden Cash Attending Clinician Edgardo Iniguez Attending Clinician Zach Duong S Attending Clinician ZACH CHUNG Attending Clinician ADEN Zhu Attending Clinician Lacie cardenas GC_GCBZW_Kadiyala_S Admitting Clinician Onur morrell Physician, No Primary or Family Admitting Clinic sue Unavailable Payers Payer Name Policy Type Policy Number Effective Date Expirati on Date Source [facility] [id number] 2018 00:00:00 Allergies, Adverse Reactions, Alerts Allergy [...] DA Active U 2017-11 00:00: 00 [facility] No Known Drug Allergie s DA Active U 2017-11 00:00: 00 [facility] NO KNOWN ALLERGIE S Drug Class Active [facility] Encounters Start Date/Time End Date/Time Encounter Type Admission Type Attending [facility] Facility Care Department Encounter ID Source 2023-09-08 00:00:00 2023-09-08 00:00:00 Outpatient GC_GCBZW_Ka diyala_S PRIV PRIV [id number] [facility] 2023-09-07 00:00:00 2023-09-07 00:00:00 Outpatient GC_GCBZW_Ka diyala_S PRIV PRIV [id number] [facility] 2021-04-11 21:46:25 2021-04-11 21:46:25 Outpatient SunnyGolden ARNOLDTO HCATO [id number] [facility] 2021-03-06 01:52:06 2021-03-06 01:52:06 Outpatient SunnyGolden ARNOLDTO [facility]AT[facility] [id number] [facility] 2021-02-18 09:00:00 2021-02-18 09:00:00 Outpatient SunnyGolden ARNOLDTO PAIN [id number] [facility] 2020-11-06 13:45:00 2020-11-06 13:45:00 Outpatient Edgardo Diez [facility]AT[facility] RADI [id number] [facility] 2020-11-06 09:00:00 2020-11-06 09:00:00 Outpatient R [facility] [id number] [facility] 2020-11-06 09:00:00 2020-11-06 09:00:00 Outpatient R [facility] [id number] [facility] 2020-08-07 10:19:18 2020-08-09 11:06:03 Office Visit Zach Chung [facility]ine [id number] 2020-08-07 13:07:41 2020-08-07 23:59:00 Outpatient R ZACH CHUNG [facility] [id number] [facility] 2020-08-07 11:00:00 2020-08-07 11:00:00 Outpatient R ZACH CHUNG [facility] [id number] [facility] 2020-03-02 09:45:00 2020-03-02 09:45:00 Outpatient R ADEN DURAN [facility] [id number] [facility] Results Test Description Test Time Test Comments Results Resul t Comments Source - XR FLUORO FOR SPINE INJ 2021-04-09 11:05:00 [facility] 1960 Sex: F Patient Name: JOEY ARTEAGA Unit No: [id number] EXAMS: CPT CODE: [id number] XR FLUORO FOR SPINE INJ 00712 LUMBAR EPIRADICULAR INJECTION REFERRAL PHYSICIAN: Dr. Correa [...] Transcribed D/ (1105) [email or web address] [facility] NAME: JOEY ARTEAGAJAMIRRUBY [address] [facility] PHYS: Golden Wong [place], [place] [address] : 1960 AGE: 60 SEX: F LOC: LING PHONE #: [phone] EXAM DATE: 04/09/2021 STATUS: REG [facility] FAX #: [phone] RAD #: D/C DT PAGE 1 Signed Report Patient Name: JOEY ARTEAGA Unit No: [id number] EXAMS: CPT CODE: [id number] XR FLUORO FOR SPINE INJ 26887 (Continued) Orig Print D/T: S: 04/09/2021 (1108) [facility] NAME: JOEY ARTEAGA [address] [facility] PHYS: Golden Wong [place], [place] [address] : 1960 AGE: 60 SEX: F LOC: MernaJOANN PHONE #: [phone] EXAM DATE: 04/09/2021 STATUS: REG [facility] FAX #: [phone] RAD #: D/C DT PAGE 2 Signed Report - XR FLUORO FOR SPINE INJ 2021-03-04 14:45:00 [facility] 1960 Sex: F Patient Name: JOEY ARTEAGA Unit No: [id number] EXAMS: CPT CODE: [id number] XR FLUORO FOR SPINE INJ 80961 LUMBAR EPIRADICULAR INJECTION REFERRAL PHYSICIAN: Dr. Diez [...] MD Technologist: CATHRYN ALCALA RT(R) Transcribed D/ (0791) [email or web address] [facility] NAME: JOEY ARTEAGA [address] [facility] PHYS: GINCHIP Nevaeh CorreaGolden [place], [place] [address] : 1960 AGE: 60 SEX: F LOC: MernaJOANN PHONE #: [phone] EXAM DATE: 03/04/2021 STATUS: REG [facility] FAX #: [phone] RAD #: D/C DT PAGE 1 Signed Report Patient Name: JOEY ARTEAGA Unit No: [id number] EXAMS: CPT CODE: [id number] XR FLUORO FOR SPINE INJ 57748 (Continued) Orig Print D/T: S: 03/04/2021 (1445) [facility] NAME: JOEY ARTEAGA [address] [facility] PHYS: Golden Wong [place], [place] [address] : 1960 AGE: 60 SEX: F LOC: LING PHONE #: [phone] EXAM DATE: 03/04/2021 STATUS: REG [facility] FAX #: [phone] RAD #: D/C DT PAGE 2 Signed Report - XR FLUORO FOR SPINE INJ 2021-02-18 15:19:00 [facility] 1960 Sex: F Patient Name: JOEY ARTEAGA Unit No: [id number] EXAMS: CPT CODE: [id number] XR FLUORO FOR SPINE INJ 21718 LUMBAR EPIRADICULAR INJECTION REFERRAL PHYSICIAN: Dr. Diez [...] MD CC: Technologist: Jennifer Moss(R) Transcribed D/ (6999) [email or web address] [facility] NAME: JOEY ARTEAGA [address] [facility] PHYS: Golden Wong [place], [place] [address] : 1960 AGE: 60 SEX: F LOC: LING PHONE #: [phone] EXAM DATE: 02/18/2021 STATUS: REG [facility] FAX #: [phone] RAD #: D/C DT PAGE 1 Signed Report Patient Name: JOEY ARTEAGA Unit No: [id number] EXAMS: CPT CODE: [id number] XR FLUORO FOR SPINE INJ 60632 (Continued) Orig Print D/T: S: 02/18/2021 (1522) [facility] NAME: JOEY ARTEAGA [address] [facility] PHYS: Golden Wong [place], [place] [address] : 1960 AGE: 60 SEX: F LOC: MernaJOANN PHONE #: [phone] EXAM DATE: 02/18/2021 STATUS: REG [facility] FAX #: [phone] RAD #: D/C DT PAGE 2 Signed Report - MRI L-SPINE W/O CONT 2020-11-07 07:50:00 [facility] : 1960 Sex: F Patient Name: JOEY ARTEAGA Unit No: [id number] EXAMS: CPT CODE: [id number] MRI L-SPINE W/O CONT 62657 TECHNIQUE: Multiplanar, multisequence MRI examination performed of [...] bulge. Moderate bilateral facet hypertrophy. There is odqm-ar-kzwmwqai central canal stenosis as well as mild [...] M.D. CC: Edgardo Diez MD Technologist: CLEVE MALIK.MRI,CT Transcribed D/ (0750) AntonyJ [facility] NAME: JOEY ARTEAGA [address] [facility] PHYS: Edgardo Patel MD : 1960 AGE: 60 SEX: F [place] [address] LOC: Y.MRI PHONE #: [phone] EXAM DATE: 11/06/2020 STATUS: DEP CLI FAX #: [phone] RAD #: D/C DT PAGE 1 Signed Report Patient Name: JOEY ARTEAGA Unit No: [id number] EXAMS: CPT CODE: [id number] MRI L-SPINE W/O CONT 56693 (Continued) Orig Print D/T: S: 11/07/2020 (0754) [facility] NAME: JOEY ARTEAGA [address] [facility] PHYS: Edgardo Patel MD : 1960 AGE: 60 SEX: F [place] [address] LOC: Y.MRI PHONE #: [phone] EXAM DATE: 11/06/2020 STATUS: DEP CLI FAX #: [phone] RAD #: D/C DT PAGE 2 Signed Report - XR L-SPINE W/BEND VIEW 2020-11-06 18:49:00 [facility] 1960 Sex: F Patient Name: JOEY ARTEAGA Unit No: [id number] EXAMS: CPT CODE: [id number] XR L-SPINE W/BEND VIEW 19420 COMPARISON: Concurrent MRI. IMAGES PROVIDED: 7 views [...] Technologist: RT. Belen(R) Transcribed D/ (1848) ZekeSLJ [facility] NAME: JOEY ARTEAGA [address] [facility] PHYS: Edgardo Patel MD : 1960 AGE: 60 SEX: F [place] [address] LOC: Y.MRI PHONE #: [phone] EXAM DATE: 11/06/2020 STATUS: REG CLI FAX #: [phone] RAD #: D/C DT PAGE 1 Signed Report Patient Name: JOEY ARTEAGA Unit No: [id number] EXAMS: CPT CODE: [id number] XR L-SPINE W/BEND VIEW 16428 (Continued) Orig Print D/T: S: 11/06/2020 (185) [facility] NAME: JOEY ARTEAGA [address] [facility] PHYS: Edgardo Patel MD : 1960 AGE: 60 SEX: F [place] [id number] LOC: Y.MRI PHONE #: [phone] EXAM DATE: 11/06/2020 STATUS: REG CLI FAX #: [phone] RAD #: D/C DT PAGE 2 Signed Report
[2025-03-15] MEDS ORDERED: METOCLOPRAMIDE 10 MG/2mL INJ ONE (02:06)
[2025-03-15] MEDS ORDERED: DIPHENHYDRAMINE 50 MG/ML VIAL ONE (02:06)
[2025-03-15] MEDS ORDERED: KETOROLAC 30 MG/ML INJ ONE (02:06)
[2025-03-15] MEDS ORDERED: NA CHLORIDE 0.9% 1,000 ML ONE (02:06)
[2025-03-15 02:29] LABS: Absolute Eosinophils 0.2 K/uL (0-0.5); Absolute Monocytes 0.5 K/uL (0.1-1.3); Absolute Neutrophil 3.5 K/uL (1.8-8.0); Basophils % 0.7 % (0-1.3); Eosinophils % 3.6 % (0-4.4); Hematocrit 37.4 % (36.0-45.0); Lymphocytes % 31.9 % (15.3-44.8); MCH 31.6 pg (27.0-35.0); MCHC 34.9 g/dL (32.0-36.0); MCV 90.7 fL (80-100); MPV 8.1 fL (7.6-11.3); Monocytes % 8.5 % (3.3-12.3); Neutrophils % 55.3 % (41.7-73.7); Nucleated Red Blood Cells % 0.1 % (0-0); Platelets 309 thou/uL (152-406); RBC Red Blood Cell Count 4.12 M/uL (3.86-4.86); Red Cell Distribution Width 13.6 % (12.1-15.2)
[2025-03-15 02:41] LABS: ALT/SGPT 19 U/L (13-56); Albumin 3.4 g/dL (3.4-5.0); Alkaline Phosphatase 61 U/L (45-117); Anion Gap 9.2 mEq/L (5.0-15.0); BUN Blood Urea Nitrogen 9 mg/dL (7-18); Bicarbonate 27 mEq/L (21-32); Bilirubin Total 0.4 mg/dL (0.2-1.0); Creatine Phosphokinase 79 U/L (26-192); Globulin 3.5 g/dL (2.3-3.5); Glomerular Filtration Rate 86 ml/min (=/>90); Glucose Level 98 mg/dL (74-106); Lipase 30 U/L (13-75); Magnesium 1.9 mg/dL (1.6-2.4); NT PRO-BNP 163 pg/mL (<125); Potassium 3.2 mEq/L (3.5-5.1); Protein, Total 6.9 g/dL (6.4-8.2); Sodium Level 135 mEq/L (136-145); Troponin High Sensitivity 9.6 pg/mL (<58.9)
[2025-03-15 02:43] LABS: AST/SGOT < 10 U/L (15-37); Bilirubin Direct < 0.2 mg/dL (0-0.2); Bilirubin Indirect, Calculated 0.2 mg/dL (0.2-0.8)
[2025-03-15 02:48] LABS: D-Dimer 0.292 FEUug/mL (0-0.500); PT Prothrombin Time 11.2 SECONDS (10-13.0); PTT, Activated Partial Thromb 31.7 SECONDS (27.2-37.4); Protime INR 0.98
--- NOTE | 2025-03-15 03:46 | RAD REPORT ---
CLINICAL HISTORY: HEADACHE COMPARISON: None. TECHNIQUE: CT HEAD WITHOUT IV CONTRAST on 03/15/2025 2:02 AM CDT This exam was performed according to our departmental dose-optimization program, which includes autom ated exposure control, adjustment of the mA and/or kV according to patient size and/or use of iterative reconstruction technique. FINDINGS: There is no acute hemorrhage, mass effect or midline shift. Nassar-white differentiation is preserved. There is no hydrocephalus. There is no significant volume loss for age. The calvarium is intact. Orbits and globes are unremarkable. The paranasal sinuses are clear. Mastoid air cells are clear. IMPRESSION: No acute intracranial findings. Electronically signed by: Ronn Romero MD 03/15/2025 03:37 AM CDT RP Due to temporary technical issues with the [employer] reporting system, reports are being maxine d by the in-house radiologist without review as a courtesy to ensure prompt reporting the interpreting radiologist is fully responsible for the content of the report. Transcribed Date/Time: 03/15/2025 3:45 AM
[2025-03-15 04:12] LABS: Influenza A Ag Negative; Influenza B Ag Negative; SARS-CoV-2 Antigen Rapid Res Negative (Negative)
[2025-03-15 04:15] LABS: Thyroid Stimulating Hormone 2.39 uIU/mL (0.358-3.740)
[2025-03-15] MEDS ORDERED: methocarbamoL 500 MG TAB ONE (04:19)
[2025-03-15] MEDS ORDERED: methocarbamoL 750 MG TAB ONE (04:19)
[2025-03-15] MEDS ORDERED: TRAMADOL HCL 50 MG TAB ONE (04:20)
--- NOTE | 2025-03-15 05:01 | ER ---
Nurse's Notes [facility] Name: Kay Rousseau Age: 64 yrs Sex: Female : 1960 Arrival Date: 03/15/2025 Time: 01:33 Bed 15 Private MD: Diagnosis: Paresthesias, acute tension headache,, acute exacerbation of chronic back pain;Paresthesia of skin Presentation: 03/15 01:51 Chief complaint: Patient states: HEADACHE, WEAKNESS ON THE RIGHT SIDE OF BODY OFF AND ha1 ON FOR ABOUT A WEEK. 01:51 Coronavirus screen: Client denies travel out of the [place] in the last 14 days. Ebola ha1 Screen: No symptoms or risks identified at this time. Initial Sepsis Screen: Does the patient meet any 2 criteria? No. Patient's initial sepsis screen is negative. Does the patient have a suspected source of infection? No. Patient's initial sepsis screen is negative. Risk Assessment: Do you want to hurt yourself or someone else? Patient reports no desire to harm self or others. Onset of symptoms was March 15, 2025. 01:51 Method Of Arrival: Ambulatory ha1 01:51 Acuity: JEREMY 3 ha1 Triage Assessment: 01:51 General: Appears uncomfortable, Behavior is cooperative. Pain: Complains of pain in ha1 HEADACHE Pain currently is 9 out of 10 on a pain scale. Neuro: Level of Consciousness is awake, alert, obeys commands, Oriented to person, place, time, situation. Cardiovascular: Capillary refill < 3 seconds Patient's skin is warm and dry. Respiratory: Airway is patent Respiratory effort is even, unlabored, Respiratory pattern is regular, symmetrical. GI: Abdomen is round non-distended. Derm: Skin is pink, warm \T\ dry. Musculoskeletal: Circulation, motion, and sensation intact. Range of motion: intact in all extremities. Historical: - Allergies: 01:51 No Known Allergies; ha1 - Home Meds: :51 Metoprolol Tartrate Oral [Active]; ha1 - PMHx: 01:51 Depression; High Cholesterol; Hypertension; Hypothyroidism; Myocardial infarction; ha1 - Immunization history:: Adult Immunizations up to date. - Infectious Disease History:: Denies. - Social history:: Smoking status: Patient denies any tobacco usage or history of. - Family history:: not pertinent. Screenin:00 [facility] ED Fall Risk Assessment (Adult) History of falling in the last 3 months, rg5 including since admission No falls in past 3 months (0 pts) Confusion or Disorientation No (0 pts) Intoxicated or Sedated No (0 pts) Impaired Gait No (0 pts) Mobility Assist Device Used No (0 pt) Altered Elimination No (0 pt) Score/Fall Risk Level 0 - 2 = Low Risk Oriented to surroundings, Maintained a safe environment, Hourly rounding (assess needs \T\ fall precautionary measures) done. Abuse screen: Denies threats or abuse. Nutritional screening: No deficits noted. Tuberculosis screening: No symptoms or risk factors identified. Assessment: 01:58 Reassessment: LACTATE AND BLOOD CULTURES CANCEL BY DR. ROBERTS. ha1 02:00 General: Appears uncomfortable, Behavior is calm, cooperative, appropriate for age. rg5 02:00 Pain: Complains of pain in head Quality of pain is described as aching. Neuro: Level of rg5 Consciousness is awake, alert, obeys commands, Oriented to person, place, time, situation, Reports headache. Cardiovascular: Patient's skin is warm and dry. Rhythm is sinus rhythm. Respiratory: Airway is patent Trachea midline Respiratory effort is even, unlabored, Respiratory pattern is regular, symmetrical, Breath sounds are clear. GI: Abdomen is round non-distended, Abd is soft. : No signs and/or symptoms were reported regarding the genitourinary system. EENT: No deficits noted. Derm: Skin is intact, Skin is dry, Skin is normal. Musculoskeletal: Circulation, motion, and sensation intact. Range of motion: intact in all extremities. 03:00 Reassessment: Patient and/or family updated on plan of care and expected duration. Pain rg5 level reassessed. Patient is alert, oriented x 3, equal unlabored respirations, skin warm/dry/pink. 04:00 Reassessment: Patient and/or family updated on plan of care and expected duration. Pain rg5 level reassessed. Patient is alert, oriented x 3, equal unlabored respirations, skin warm/dry/pink. 05:15 Reassessment: Patient and/or family updated on plan of care and expected duration. Pain rg5 level reassessed. Patient is alert, oriented x 3, equal unlabored respirations, skin warm/dry/pink. Vital Signs: 01:51 BP 159 / 80; Pulse 65; Resp 18; Temp 97.8(O); Pulse Ox 97% on R/A; Weight 81.65 kg; ha1 Height 5 ft. 3 in. ; 02:45 BP 155 / 91; Pulse 62; Resp 18; Pulse Ox 98% ; Pain 5/10; rg5 04:00 BP 133 / 70; Pulse 65; Resp 18; Pulse Ox 97% on R/A; Pain 5/10; rg5 05:23 BP 153 / 76; Pulse 63; Resp 17; Pulse Ox 96% on R/A; Pain 0/10; rg5 01:51 Body Mass Index 31.89 (81.65 kg, 160.02 cm) ha1 02:45 Pain Scale: Adult rg5 04:00 Pain Scale: Adult rg5 05:23 Pain Scale: Adult rg5 Saadia Coma Score: 04:57 Eye Response: spontaneous(4). Motor Response: obeys commands(6). Verbal Response: sp4 oriented(5). Total: 15. NIH Stroke Scale Scores: 04:58 NIHSS Score: 0 sp4 ED Course: 01:40 Patient arrived in ED. gm2 01:44 Jl Roberts MD is Attending Physician. sp4 02:00 Patient has correct armband on for positive identification. Bed in low position. Call rg5 light in reach. Side rails up X 1. Door closed. Noise minimized. 02:00 Arm band placed on. rg5 02:00 No provider procedures requiring assistance completed. Inserted saline lock: 20 gauge rg5 in left hand, using aseptic technique. Blood collected. Flushed with 10 mL NS. 02:01 Juan Nieves, RN is Primary Nurse. rg5 02:17 XRAY CXR (1 view) In Process Unspecified. EDMS 02:27 Triage completed. ha1 03:13 CT Head Brain wo Cont In Process Unspecified. EDMS 04:20 Extremity Venous Uni Ltd US In Process Unspecified. EDMS 04:58 Malachi Contreras MD is Referral Physician. sp4 05:24 IV discontinued, bleeding controlled, No redness/swelling at site. Pressure dressing rg5 applied. 05:33 Provided Education on: post er care. rg5 Administered Medications: 02:01 CANCELLED (Physician Discretion): albuterol2.5 mg Inhalation every 20 minutes x3 sp4 02:01 CANCELLED (Physician Discretion): cefepime2 grams IVPB at 200 ml/hr once over 30 mins; sp4 (mix in NS 100 mL) 02:01 CANCELLED (Physician Discretion): vancomycin1 grams IVPB once over 2 hrs sp4 02:02 CANCELLED (Physician Discretion): ipratropiumaerosol 0.5 mg Inhalation once; Every 20 sp4 min for a total of 3 treatments x3 02:02 CANCELLED (Physician Discretion): brrnidwwesxqkcrick114 mg IVP once sp4 02:19 Drug: diphenhydrAMINE IVP 25 mg IVP once Route: IVP; Site: left hand; rg5 02:45 Follow up: Response: No adverse reaction; Pain is decreased rg5 02:19 Drug: NS 0.9% IV 1000 ml IV at 1000 ml once; to be given as a bolus over 60 minutes rg5 Route: IV; Rate: 1000 ml; Site: left hand; 03:30 Follow up: IV Status: Completed infusion; IV Intake: 1000ml rg5 02:20 Drug: Ketorolac IVP 30 mg IVP once Route: IVP; Site: left hand; rg5 02:46 Follow up: Response: No adverse reaction; Pain is decreased rg5 02:20 Drug: metoCLOPramide IVP 10 mg IVP once; over 1 to 2 minutes Route: IVP; Site: left rg5 hand; 02:46 Follow up: Response: No adverse reaction; Pain is decreased rg5 04:30 Drug: Methocarbamol PO 1500 mg PO once Route: PO; rg5 05:25 Follow up: Response: No adverse reaction; Pain is decreased rg5 04:30 Drug: traMADol PO 100 mg PO once Route: PO; rg5 05:25 Follow up: Response: No adverse reaction; Pain is decreased rg5 Medication: 02:00 VIS not applicable for this client. rg5 Intake: 03:30 IV: 1000ml; Total: 1000ml. rg5 Outcome: 05:01 Discharge ordered by . sp4 05:33 Discharged to home ambulatory, rg5 05:33 Condition: stable 05:33 Discharge instructions given to patient, Instructed on discharge instructions, follow up and referral plans. Demonstrated understanding of instructions, follow-up care, medications, Prescriptions given X 2, 05:33 Patient left the ED. rg5 NIH Stroke Scale - NIH Stroke Score Date: 03/15/2025 Time: 04:58 Total Score = 0 10. Dysarthria (speech clarity - read or repeat words) - 0(Normal) 11. Extinction and Inattention (visual/tactile/auditory/spatial/personal) - 0(No abnormality) 1a. Level of Consciousness (LOC) - 0(Alert) 1b. Level of Consciousness (LOC) (Month \T\ Age) - 0(Both) 1c. LOC Commands (Open \T\ Closes Eyes/Console Attendant) - 0(Both) 2. Best Gaze (Lateral Gaze Paresis) - 0(Normal) 3. Visual Field Loss - 0(No visual loss) 4. Facial Palsy - 0(Normal) 5a. Left Arm: Motor (10-second hold) - 0(No drift) 5b. Right Arm: Motor (10-second hold) - 0(No drift) 6a. Left Leg: Motor (5-second hold - always test supine) - 0(No drift) 6b. Right Leg: Motor (5-second hold - always test supine) - 0(No drift) 7. Limb Ataxia (finger/nose \T\ heel/brooks - test with eyes open) - 0(Absent) 8. Sensory Loss (pinprick arms/legs/face) - 0(Normal) 9. Best Language: Aphasia (description/naming/reading) - 0(No aphasia) Initials: sp4 Signatures: Dispatcher [employer] Judy Chance, RN RN ha1 Jl Roberts MD MD sp4 Yina Saez 2 Juan Nieves RN RN rg5
--- NOTE | 2025-03-15 05:01 | EDPHYS ---
Physician Documentation [facility] Name: Kay Rousseau Age: 64 yrs Sex: Female : 1960 Arrival Date: 03/15/2025 Time: 01:33 Bed 15 Private MD: ED Physician Jl Roberts HPI: 03/15 01:44 This 64 yrs old Female presents to ER via Unassigned with complaints of Arm sp4 Pain, Leg Pain. 05:10 64-year-old female presents with acute headache, also complaining of right sided sp4 paresthesias numbness tingling in the arm R and leg for the past 1 month.. Historical: - Allergies: 01:51 No Known Allergies; ha1 - Home Meds: 01:51 Metoprolol Tartrate Oral [Active]; ha1 - PMHx: 01:51 Depression; High Cholesterol; Hypertension; Hypothyroidism; Myocardial infarction; ha1 - Immunization history:: Adult Immunizations up to date. - Infectious Disease History:: Denies. - Social history:: Smoking status: Patient denies any tobacco usage or history of. - Family history:: not pertinent. ROS: 05:10 Constitutional: Negative for fever, chills, and weight loss, positive acute headache, sp4 positive right arm paresthesias, positive for left leg paresthesia Neuro: Positive for headache, positive for numbness and tingling. 05:10 All other systems are negative, Exam: 04:57 Constitutional: This is a well developed, well nourished patient who is awake, alert, sp4 and in no acute distress. Head/Face: Normocephalic, atraumatic. Eyes: Pupils equal round and reactive to light, extra-ocular motions intact. Lids and lashes normal. Conjunctiva and sclera are not injected. Cornea within normal limits. Periorbital areas with no swelling, redness, or edema. ENT: Nares patent. No nasal discharge, no septal abnormalities noted. Tympanic membranes are normal and external auditory canals are clear. Oropharynx with no redness, swelling, or masses, exudates, or evidence of obstruction, uvula midline. Mucous membranes moist. Neck: Trachea midline, no thyromegaly or masses palpated, and no cervical lymphadenopathy. Supple, full range of motion without nuchal rigidity, or vertebral point tenderness. Chest/axilla: Normal chest wall appearance and motion. Nontender with no deformity. No lesions are appreciated. Cardiovascular: Regular rate and rhythm with a normal S1 and S2. No gallops, murmurs, or rubs. Normal PMI, no JVD. No pulse deficits. Respiratory: Lungs have equal breath sounds bilaterally, clear to auscultation and percussion. No rales, rhonchi or wheezes noted. No increased work of breathing, no retractions or nasal flaring. Abdomen/GI: Soft, with normal bowel sounds. No distension or tympany. No guarding or rebound. No evidence of tenderness throughout. Back: No spinal tenderness. No costovertebral tenderness. Skin: Warm, dry with normal turgor. Normal color with no rashes, no lesions, and no evidence of cellulitis. MS/ Extremity: Pulses equal, no cyanosis. Neurovascular intact. Full, normal range of motion. Neuro: Awake and alert, GCS 15, oriented to person, place, time, and situation. Cranial nerves II-XII grossly intact. Motor strength 5/5 in all extremities. Sensory grossly intact. Psych: Awake, alert, with orientation to person, place and time. Behavior, mood, and affect are within normal limits 04:57 ECG was reviewed by the Attending Physician. EKG at 0 212 normal sinus rhythm rate 60 otherwise normal Vital Signs: 01:51 BP 159 / 80; Pulse 65; Resp 18; Temp 97.8(O); Pulse Ox 97% on R/A; Weight 81.65 kg; ha1 Height 5 ft. 3 in. ; 02:45 BP 155 / 91; Pulse 62; Resp 18; Pulse Ox 98% ; Pain 5/10; rg5 04:00 BP 133 / 70; Pulse 65; Resp 18; Pulse Ox 97% on R/A; Pain 5/10; rg5 05:23 BP 153 / 76; Pulse 63; Resp 17; Pulse Ox 96% on R/A; Pain 0/10; rg5 01:51 Body Mass Index 31.89 (81.65 kg, 160.02 cm) ha1 02:45 Pain Scale: Adult rg5 04:00 Pain Scale: Adult rg5 05:23 Pain Scale: Adult rg5 NIH Stroke Scale Scores: 04:58 NIHSS Score: 0 sp4 Saadia Coma Score: 04:57 Eye Response: spontaneous(4). Motor Response: obeys commands(6). Verbal Response: sp4 oriented(5). Total: 15. MDM: 01:48 Medical Screening Exam initiated sp4 04:24 ED course: CLINICAL HISTORY: HEADACHE COMPARISON: None. TECHNIQUE: CT HEAD WITHOUT IV sp4 CONTRAST on 03/15/2025 2:02 AM CDT This exam was performed according to our departmental dose-optimization program, which includes automated exposure control, adjustment of the mA and/or kV according to patient size and/or use of iterative reconstruction technique. FINDINGS: There is no acute hemorrhage, mass effect or midline shift. Nassar-white differentiation is preserved. There is no hydrocephalus. There is no significant volume loss for age. The calvarium is intact. Orbits and globes are unremarkable. The paranasal sinuses are clear. Mastoid air cells are clear. IMPRESSION: No acute intracranial findings. Electronically signed by: Ronn Romero MD 03/15/2025 03:37 AM. 04:25 ED course: CLINICAL HISTORY: Chest pain. COMPARISON: None. TECHNIQUE: XR CHEST 1 VIEW sp4 03/15/2025 1:45 AM CDT FINDINGS: Heart is enlarged. Lungs are clear without consolidation, atelectasis, mass or edema. There is no pleural effusion. There is no pneumothorax. There are no acute osseous findings. IMPRESSION: Clear lungs. . 05:10 Differential diagnosis: dislocation, open fracture, abrasion, tendonitis. Data sp4 reviewed: vital signs, nurses notes, lab test result(s), EKG, radiologic studies, CT scan, plain films. 03/15 01:45 Order name: BMP; Complete Time: 03:20 sp4 03/15 01:45 Order name: CBC with Diff; Complete Time: 03:20 sp4 03/15 01:45 Order name: CPK; Complete Time: 03:20 sp4 03/15 01:45 Order name: D-Dimer; Complete Time: 03:20 sp4 03/15 01:45 Order name: Hepatic Function; Complete Time: 03:20 sp4 03/15 01:45 Order name: Lipase; Complete Time: 03:20 sp4 03/15 01:45 Order name: Magnesium; Complete Time: 03:20 sp4 03/15 01:45 Order name: NT PRO-BNP; Complete Time: 03:20 sp4 /07 01:45 Order name: PT-INR; Complete Time: 03:20 03/15 01:45 Order name: Ptt, Activated; Complete Time: 03:20 03/15 01:45 Order name: Troponin HS; Complete Time: 03:20 03/15 01:45 Order name: ABG 03/15 01:46 Order name: COVID-19 Ag + Flu A+B Ag; Complete Time: 04:24 03/15 01:46 Order name: CRP; Complete Time: 03:20 03/15 01:47 Order name: Lipase; Complete Time: 03:20 03/15 03:10 Order name: Troponin High Sensitivity; Complete Time: 04:24 03/15 03:15 Order name: TSH; Complete Time: 04:24 03/15 03:15 Order name: T4 Free; Complete Time: 04:24 03/15 01:45 Order name: XRAY CXR (1 view) 03/15 01:47 Order name: Extremity Venous Uni Ltd US 03/15 02:02 Order name: CT Head Brain wo Cont; Complete Time: 04:24 03/15 01:45 Order name: Cardiac monitoring; Complete Time: 02:20 03/15 01:45 Order name: EKG - Nurse/Tech; Complete Time: 02:03/15 01:45 Order name: IV Saline Lock; Complete Time: 02:20 03/15 01:45 Order name: Labs collected and sent; Complete Time: 02:03/15 01:45 Order name: O2 Per Protocol; Complete Time: 02:03/15 01:45 Order name: O2 Sat Monitoring; Complete Time: 02:20 EC:12 Rate is 60 beats/min. Rhythm is regular, Normal Sinus Rhythm. QRS [place] is Normal. MI sp4 interval is normal. QRS interval is normal. QT interval is normal. No Q waves. T waves are Normal. No ST changes noted. Clinical impression: No evidence of ischemia. Interpreted by me. Reviewed by me. Administered Medications: 02:01 CANCELLED (Physician Discretion): albuterol2.5 mg Inhalation every 20 minutes x3 sp4 02:01 CANCELLED (Physician Discretion): cefepime2 grams IVPB at 200 ml/hr once over 30 mins; sp4 (mix in NS 100 mL) 02:01 CANCELLED (Physician Discretion): vancomycin1 grams IVPB once over 2 hrs sp4 02:02 CANCELLED (Physician Discretion): ipratropiumaerosol 0.5 mg Inhalation once; Every 20 sp4 min for a total of 3 treatments x3 02:02 CANCELLED (Physician Discretion): [id number] mg IVP once sp4 02:19 Drug: diphenhydrAMINE IVP 25 mg IVP once Route: IVP; Site: left hand; rg5 02:45 Follow up: Response: No adverse reaction; Pain is decreased rg5 02:19 Drug: NS 0.9% IV 1000 ml IV at 1000 ml once; to be given as a bolus over 60 minutes rg5 Route: IV; Rate: 1000 ml; Site: left hand; 03:30 Follow up: IV Status: Completed infusion; IV Intake: 1000ml rg5 02:20 Drug: Ketorolac IVP 30 mg IVP once Route: IVP; Site: left hand; rg5 02:46 Follow up: Response: No adverse reaction; Pain is decreased rg5 02:20 Drug: metoCLOPramide IVP 10 mg IVP once; over 1 to 2 minutes Route: IVP; Site: left rg5 hand; 02:46 Follow up: Response: No adverse reaction; Pain is decreased rg5 04:30 Drug: Methocarbamol PO 1500 mg PO once Route: PO; rg5 05:25 Follow up: Response: No adverse reaction; Pain is decreased rg5 04:30 Drug: traMADol PO 100 mg PO once Route: PO; rg5 05:25 Follow up: Response: No adverse reaction; Pain is decreased rg5 Disposition Summary: 03/15/25 05:01 Discharge Ordered Notes: Location: Home sp4 Problem: new sp4 Symptoms: have improved sp4 Condition: Stable sp4 Diagnosis - Paresthesias, acute tension headache,, acute exacerbation of chronic back pain sp4 - Paresthesia of skin sp4 Followup: sp4 - With: Malachi Contreras MD - When: 7 - 10 days - Reason: Recheck today's complaints Discharge Instructions: - Discharge Summary Sheet sp4 - Paresthesia, [id number] sp4 Forms: - Patient Portal Instructions sp4 Prescriptions: - Fioricet 50-300-40 mg Oral capsule - take 1 capsule ORAL route every 8 hours as needed for pain; 30 capsule; sp4 Refills: 0, Product Selection Permitted - Tramadol 50 mg Oral Tablet - take 1 tablet ORAL route every 8 hours as needed; 12 tablet; Refills: 0, sp4 Product Selection Permitted NIH Stroke Scale - NIH Stroke Score Date: 03/15/2025 Time: 04:58 Total Score = 0 10. Dysarthria (speech clarity - read or repeat words) - 0(Normal) 11. Extinction and Inattention (visual/tactile/auditory/spatial/personal) - 0(No abnormality) 1a. Level of Consciousness (LOC) - 0(Alert) 1b. Level of Consciousness (LOC) (Month \T\ Age) - 0(Both) 1c. LOC Commands (Open \T\ Closes Eyes/Economics Professor) - 0(Both) 2. Best Gaze (Lateral Gaze Paresis) - 0(Normal) 3. Visual Field Loss - 0(No visual loss) 4. Facial Palsy - 0(Normal) 5a. Left Arm: Motor (10-second hold) - 0(No drift) 5b. Right Arm: Motor (10-second hold) - 0(No drift) 6a. Left Leg: Motor (5-second hold - always test supine) - 0(No drift) 6b. Right Leg: Motor (5-second hold - always test supine) - 0(No drift) 7. Limb Ataxia (finger/nose \T\ heel/brooks - test with eyes open) - 0(Absent) 8. Sensory Loss (pinprick arms/legs/face) - 0(Normal) 9. Best Language: Aphasia (description/naming/reading) - 0(No aphasia) Initials: sp4 Signatures: Dispatcher [employer] EDMS Judy Jin RN RN ha1 Jl Roberts MD MD sp4 Juan Nieves RN RN rg5 Corrections: (The following items were deleted from the chart) 01:46 01:46 BASIC METABOLIC PANEL+C.LAB.BRZ ordered. EDMS EDMS :46 01:46 BLOOD CULTURE*+BA.LAB.BRZ ordered. EDMS EDMS 46 01:46 CBC+H.LAB.BRZ ordered. EDMS EDMS 01:46 01:46 CREATINE PHOSPHOKINASE+C.LAB.BRZ ordered. EDMS EDMS 01:46 01:46 D-DIMER+COAG.LAB.BRZ ordered. EDMS EDMS 01:46 01:46 HEPATIC FUNCTION+C.LAB.BRZ ordered. EDMS EDMS 01:46 01:46 LIPASE+C.LAB.BRZ ordered. EDMS EDMS 01:46 01:46 MAGNESIUM+C.LAB.BRZ ordered. EDMS EDMS 01:46 01:46 PROBNP+C.LAB.BRZ ordered. EDMS EDMS 01:46 01:46 PROTIME (+INR)+COAG.LAB.BRZ ordered. EDMS EDMS 01:46 01:46 PTT, ACTIVATED+COAG.LAB.BRZ ordered. EDMS EDMS 01:46 01:46 Troponin High Sensitivity+C.LAB.BRZ ordered. EDMS EDMS 01:46 01:46 Chest Single View+RAD.RAD.BRZ ordered. EDMS EDMS 01:46 01:46 Arterial Blood Gas+RC.LAB.BRZ ordered. EDMS EDMS 01:46 01:46 BiPap ([employer] Only)+RC.RAD.BRZ ordered. EDMS EDMS 01:47 01:46 COVID-19 Ag + Flu A+B Ag+I.LAB.BRZ ordered. EDMS EDMS 01:47 01:46 LACTATE+C.LAB.BRZ ordered. EDMS EDMS 01:47 01:46 C-REACTIVE PROTEIN+C.LAB.BRZ ordered. EDMS EDMS 02:01 01:45 Albuterol Inhalation 2.5 mg Inhalation every 20 minutes x3 ordered. sp4 sp4 02:01 01:46 Cefepime IVPB 2 grams IVPB at 200 ml/hr once over 30 mins; (mix in NS 100 sp4 mL) ordered. sp4 02:01 01:47 vancoMYCIN IVPB 1 grams IVPB once over 2 hrs ordered. sp4 sp4 02:02 01:45 Ipratropium Inhalation Aerosol 0.5 mg Inhalation once; Every 20 min for a sp4 total of 3 treatments x3 ordered. sp4 02:02 01:45 MethylPrednisoLONE IVP 125 mg IVP once ordered. sp4 sp4 02:02 01:45 Call RT ordered. sp4 sp4
--- NOTE | 2025-03-15 05:40 | RAD REPORT ---
CLINICAL HISTORY: Chest pain. COMPARISON: None. TECHNIQUE: XR CHEST 1 VIEW 03/15/2025 1:45 AM CDT FINDINGS: Heart is enlarged. Lungs are clear without consolidation, atelectasis, mass or edema. There is no ple ural effusion. There is no pneumothorax. There are no acute osseous findings. IMPRESSION: Clear lungs. Electronically signed by: Ronn Romero MD 03/15/2025 03:35 AM CDT RP Due to temporary technical issues with the PACS/[employer] reporting system, reports are being maxine d by the in-house radiologist without review as a courtesy to ensure prompt reporting. The interpreting radiologist is fully responsible for the content of the report. Transcribed Date/Time: 03/15/2025 5:40 AM
--- NOTE | 2025-03-15 08:14 | RAD REPORT ---
EXAMINATION: Extremity Venous Uni Ltd CLINICAL HISTORY: PAIN COMPARISON: None TECHNIQUE: Grayscale and color-flow Doppler images of the left lower extremity were obtained. Spectra l Doppler analysis was performed. FINDINGS: The visualized veins of the deep venous system are patent. No echogenic thrombus noted. The veins are normally compressible with normal augmentation and respiratory variation. IMPRESSION: No DVT in the lower extremity. RECOMMENDATIONS: Electronically signed by: Jefe Villalobos MD 03/15/2025 06:48 AM CDT RP D ue to temporary technical issues with the PACS/[employer] reporting system, reports are being signed by the in-house radiologist without review as a courtesy to ensure prompt reporting the [facility] radiologist is fully responsible for the content of the report. Transcribed Date/Time: 03/15/2025 8:13 AM
[2025-03-15 13:01] VITALS: TEMP 97.8
[2025-03-15 13:07] VITALS: BP 153/76; O2SAT 96
--- NOTE | 2025-03-16 11:45 | EKG ---
Test Date: 2025-03-15 Test Time: 02:12:28 [employer]raper: ROSSI MEASUREMENT RESULTS: Intervals: Rate: 60 LA: 156 QRSD: 84 QT: 426 QTc: 426 Gibson: P: 43 LA: 156 QRS: 8 T: 29 INTERPRETIVE STATEMENTS: Normal sinus rhythm Nonspecific ST and T wave abnormality Abnormal ECG Compared to ECG 06/27/2021 14:36:47 ST (T wave) deviation now present Sinus bradycardia no longer present Electronically Signed On 03-16-25 11:42:04 CDT by Parveen Cabrera
== END 2025-03-15 05:33 | disposition home or self-care (01) ==
LOC: ER 01:33
DX: G44.209 Tension-type headache, unspecified, not intractable (principal); R20.2 Paresthesia of skin; M54.9 Dorsalgia, unspecified; I10 Essential (primary) hypertension; E78.00 Pure hypercholesterolemia, unspecified; Z11.52 Encounter for screening for COVID-19
CPT/HCPCS: 93005; 85025; 80048; 36415; 83735; 82550; 85610; 85379; 80076; 85730; 84443; 84484 ×2; 84439; 83690 ×2; 83880; 86140; 70450; 71045; 93971; 87428; J2765; J1200; J7030